=== PATIENT | male | born 1980 | race Caucasian/White ===

== ENCOUNTER 2019-04-20 09:56 | Emergency (ER) | payer OTHER ==
[2019-04-20 10:27] VITALS: RESP 18
--- NOTE | 2019-04-20 10:41 | ED ---
Extremity Problem HPI - General Chief complaint: Extremity Problem,Nontraumatic Stated complaint: lt leg cellulitis Time Seen by Provider: 04/20/19 10:28 Source: patient, RN notes reviewed, old records reviewed Mode of arrival: ambulatory Limitations: no limitations - History of Present Illness Initial comments: Patient is a 38-year-old male presents emergency Department today with complaints of left lower extremity redness and swelling for the past day. Patient reports she's had history of slightly seven lower legs the past. Patient reports he has some Tenderness associated with this. He denies any significant breaks in the skin to cause the onset of a cellulitis. He states he is nondiabetic. Patient reports that he has had no fevers or chills. He states last time he had a set quickly resolved after a week of antibiotics. - Related Data Previous Rx's Medication Instructions Recorded Cephalexin [Keflex] 500 mg PO Q6HR #40 04/20/19 Sulfamethox-Tmp 800-160Mg [Bactrim 1 tab PO Q12HR #40 tab 04/20/19 DS 800-160 mg] Allergies Allergy/AdvReac Type Severity Reaction Status Date / Time Penicillins Allergy Anaphylaxis Verified 04/20/19 10:27 vancomycin Allergy Swelling Verified 04/20/19 10:27 Review of Systems ROS Statement: Those systems with pertinent positive or pertinent negative responses have been documented in the HPI. ROS Other: All systems not noted in ROS Statement are negative. Past Medical History Additional Past Medical History / Comment(s): heart murmur, BLE cellulitis History of Any Multi-Drug Resistant Organisms: None Reported Past Surgical History: Tonsillectomy Additional Past Surgical History / Comment(s): multiple ear surgeries Past Psychological History: No Psychological Hx Reported Smoking Status: Former smoker Past Alcohol Use History: None Reported Past Drug Use History: Marijuana General Exam - General Exam Comments Initial Comments: This is a 38-year-old male. Alert and oriented 3. No distress. Limitations: no limitations General appearance: alert, in no apparent distress Head exam: Present: atraumatic, normocephalic, normal inspection Eye exam: Present: normal appearance, PERRL, EOMI. Absent: scleral icterus, conjunctival injection, periorbital swelling ENT exam: Present: normal exam, mucous membranes moist Neck exam: Present: normal inspection. Absent: tenderness, meningismus, lymphadenopathy Respiratory exam: Present: normal lung sounds bilaterally Cardiovascular Exam: Present: regular rate, normal rhythm, normal heart sounds. Absent: systolic murmur, diastolic murmur, rubs, gallop, clicks GI/Abdominal exam: Present: soft, normal bowel sounds. Absent: distended, tenderness, guarding, rebound, rigid Extremities exam: Present: normal inspection, other (Patient has evidence of er ythema over the lower calf and ankle. Evidence of superficial cellulites. He has swelling noted to the lower leg up to the knee. He does complain of some tach calf tenderness. Dorsalis pedis pulses 2+ bilaterally.) Back exam: Present: normal inspection Neurological exam: Present: alert, oriented X3, CN II-XII intact Course Vital Signs 04/20/19 04/20/19 10:25 12:28 Temperature 98.2 F 98.0 F Pulse Rate 90 78 Respiratory 18 18 Rate Blood Pressure 124/84 142/94 O2 Sat by Pulse 97 98 Oximetry Medical Decision Making - Medical Decision Making This is a 38-year-old male presents emergency department today for evaluation for complaints of left lower external any swelling pain and redness. He reports symptoms for the past few days. Said history of lower extremity cellulitis. At this time Patient has no fever. Discussed concern for possibly blood clot. Ultrasound of the lower external is completed and negative for DVT. Blood work was reviewed and unremarkable. I did tell him that his blood sugar was 188 and that he is on borderline for diabetes. Patient advised to follow-up with PCP. Patient is given a dose Emergency Department. Will Discharge Patient with Bactrim and Tylenol 3 for pain relief. Discussed return parameters and close PCP follow-up. All questions were answered and return parameters were discussed. - Lab Data Result diagrams: 04/20/19 11:00 04/20/19 11:00 Lab Results 04/20/19 04/20/19 04/20/19 Range/Units 11:00 11:00 11:00 WBC 8.3 (3.8-10.6) k/uL RBC 5.32 (4.30-5.90) m/uL Hgb 14.9 (13.0-17.5) gm/dL Hct 45.9 (39.0-53.0) % MCV 86.3 (80.0-100.0) fL MCH 28.0 (25.0-35.0) pg MCHC 32.4 (31.0-37.0) g/dL RDW 13.7 (11.5-15.5) % Plt Count 243 (150-450) k/uL Neutrophils % 68 % Lymphocytes % 22 % Monocytes % 5 % Eosinophils % 3 % Basophils % 0 % Neutrophils # 5.6 (1.3-7.7) k/uL Lymphocytes # 1.8 (1.0-4.8) k/uL Monocytes # 0.5 (0-1.0) k/uL Eosinophils # 0.2 (0-0.7) k/uL Basophils # 0.0 (0-0.2) k/uL Sodium 140 (137-145) mmol/L Potassium 4.1 (3.5-5.1) mmol/L Chloride 104 (98-107) mmol/L Carbon Dioxide 25 (22-30) mmol/L Anion Gap 11 mmol/L BUN 19 (9-20) mg/dL Creatinine 0.70 (0.66-1.25) mg/dL Est GFR (CKD-EPI)AfAm >90 (>60 ml/min/1.73 sqM) Est GFR (CKD-EPI)NonAf >90 (>60 ml/min/1.73 sqM) Glucose 188 H (74-99) mg/dL Plasma Lactic Acid Mur[place]za 1.5 (0.7-2.0) mmol/L Calcium 9.4 (8.4-10.2) mg/dL Total Bilirubin 0.6 (0.2-1.3) mg/dL AST 43 (17-59) U/L ALT 56 (21-72) U/L Alkaline Phosphatase 62 (38-126) U/L Total Protein 7.0 (6.3-8.2) g/dL Albumin 4.2 (3.5-5.0) g/dL - Radiology Data Radiology results: report reviewed US doppler is negative for for DVT. Disposition Clinical Impression: Left leg cellulitis, Hyperglycemia Disposition: HOME SELF-CARE Condition: Good Instructions (If sedation given, give patient instructions): Cellulitis (ED) Additional Instructions: He is advsied of close follow-up with primary care physician. Return to the emergency department if any alarming signs or symptoms occur. The antibiotics as prescribed. If there is any worsening, fever or worsening redness extending up the leg over the next 1-2 days please return for reevaluation. make sure to keep Leg up and elevated. Prescriptions: Sulfamethox-Tmp 800-160Mg [Bactrim DS 800-160 mg] 1 tab PO Q12HR #40 tab Cephalexin [Keflex] 500 mg PO Q6HR #40 Is patient prescribed a controlled substance at d/c from ED?: No Referrals: None,Stated [Primary Care Provider] - 1-2 days Ynes Aguirre MD [REFERRING] - 1-2 days Time of Disposition: 13:05
[2019-04-20 11:20] LABS: Basophils % (A) 0 %; Eosinophils # (A) 0.2 k/uL (0-0.7); Eosinophils % (A) 3 %; HCT 45.9 % (39.0-53.0); HGB 14.9 gm/dL (13.0-17.5); Lymphocytes # (A) 1.8 k/uL (1.0-4.8); Lymphocytes % (A) 22 %; MCHC 32.4 g/dL (31.0-37.0); MCV 86.3 fL (80.0-100.0); Mean Platelet Volume 6.6; Monocytes # (A) 0.5 k/uL (0-1.0); Monocytes % (A) 5 %; Neutrophils # (A) 5.6 k/uL (1.3-7.7); Neutrophils % (A) 68 %; Platelet Count 243 k/uL (150-450); RBC 5.32 m/uL (4.30-5.90); RDW 13.7 % (11.5-15.5); WBC 8.3 k/uL (3.8-10.6)
[2019-04-20 11:27] LABS: ALT 56 U/L (21-72); AST 43 U/L (17-59); African American GFR (CKD) >90 (>60 ml/min/1.73 sqM); Albumin 4.2 g/dL (3.5-5.0); Alkaline Phosphatase 62 U/L (38-126); Anion Gap 11 mmol/L; Blood Urea Nitrogen 19 mg/dL (9-20); Calcium 9.4 mg/dL (8.4-10.2); Carbon Dioxide 25 mmol/L (22-30); Chloride 104 mmol/L (98-107); Glucose 188 mg/dL (74-99); Potassium 4.1 mmol/L (3.5-5.1); Sodium 140 mmol/L (137-145); Total Bilirubin 0.6 mg/dL (0.2-1.3)
[2019-04-20 12:29] VITALS: BP 142/94; PULSE 78; TEMP 98
--- NOTE | 2019-04-20 12:49 | US ---
EXAMINATION TYPE: US venous doppler duplex LE LT DATE OF EXAM: 04/20/2019 10:36 AM COMPARISON: NONE CLINICAL HISTORY: Pain. EC patient with redness/cellulitis to left lower leg; bilateral leg swelling per patient as stated started new job which requires standing all day. SIDE PERFORMED: Left TECHNIQUE: The lower extremity deep venous system is examined utilizing real time linear array sonog adela with graded compression, doppler sonography and color-flow sonography. VESSELS IMAGED: Common Femoral Vein Deep Femoral Vein Greater Saphenous Vein * Femoral Vein Popliteal Vein Small Saphenous Vein * Proximal Calf Veins (* superficial vessels) Left Leg: Negative for DVT Grayscale, color doppler, spectral doppler imaging performed of the deep veins of the left lower extr emity. There is normal flow, compressibility, vascular waveforms. IMPRESSION: No ultrasound evidence for acute DVT in the left lower extremity.
[2019-04-20] MEDS ORDERED: ACET/COD 300 MG/30 MG STARTER PACK 6 TAB BTL PO STA (13:02)
[2019-04-20] MEDS ORDERED: SULFAMETH-TMP DS STARTER PACK 2 TAB BTL PO STA (13:02)
[2019-04-20] MEDS ORDERED: CEPHALEXIN 500MG STARTER PACK 4 CAP BTL PO STA (13:02)
== END 2019-04-20 13:45 | disposition home or self-care (01) ==
LOC: EC 09:56
DX: L03.116 Cellulitis of left lower limb (principal); R73.9 Hyperglycemia, unspecified; Z87.891 Personal history of nicotine dependence; Z88.0 Allergy status to penicillin; Z88.1 Allergy status to other antibiotic agents; Z87.2 Personal history of diseases of the skin and subcutaneous tissue
CPT/HCPCS: 99284; 96365; 36415; 80053; 83605; 85025; 93971; J0690

== ENCOUNTER 2022-06-29 21:02 | Emergency (ER) | payer OTHER ==
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
[2022-06-29 22:31] VITALS: RESP 20
[2022-06-30 08:53] LABS: Amorphous Sediment,Urine Few /hpf; Appearance,Urine Cloudy (Clear); Bilirubin,Urine Negative (Negative); Blood,Urine Negative (Negative); Color,Urine Yellow; Glucose,Urine (UA) Negative (Negative); Ketones,Urine Negative (Negative); Leukocyte Esterase,Urine Negative (Negative); Mucus,Urine Rare /hpf; Nitrite,Urine Negative (Negative); PH, Urine 7.5 (5.0-8.0); Protein,Urine Trace (Negative); Specific Gravity,Urine 1.025 (1.001-1.035); Squamous Epithelial Cell,Urine 1 /hpf (0-4)
[2022-06-30 08:59] LABS: Urn Cannabinoid Scrn Detected (NotDetected)
[2022-06-30 09:00] LABS: Amphetamine Screen,Urine Detected (NotDetected); Barbiturate Screen,Urine Not Detected (NotDetected); Benzodiazepines Screen,Urine Not Detected (NotDetected); Cocaine Screen,Urine Not Detected (NotDetected); Methadone Screen, Urine Not Detected (NotDetected); Opiate Screen,Urine Not Detected (NotDetected); Oxycodone Screen, Urine Not Detected (NotDetected); Phencyclidine Screen,Urine Not Detected (NotDetected); Tricyclic Antidepressant,Urine Not Detected (NotDetected)
[2022-06-30 10:09] LABS: ALT 40 U/L (4-49); AST 27 U/L (17-59); African American GFR (CKD) >90 (>60 ml/min/1.73 sqM); Alkaline Phosphatase 75 U/L (38-126); Anion Gap 8 mmol/L; Blood Urea Nitrogen 15 mg/dL (9-20); Calcium 8.6 mg/dL (8.4-10.2); Carbon Dioxide 30 mmol/L (22-30); Chloride 102 mmol/L (98-107); Glucose 147 mg/dL (74-99); Non-African American GFR(CKD) >90 (>60 ml/min/1.73 sqM); Potassium 4.1 mmol/L (3.5-5.1); Sodium 140 mmol/L (137-145); Total Bilirubin 0.5 mg/dL (0.2-1.3); Total Protein 6.5 g/dL (6.3-8.2)
[2022-06-30 10:50] LABS: Basophils # (A) 0.1 k/uL (0-0.2); Basophils % (A) 1 %; Eosinophils # (A) 0.3 k/uL (0-0.7); Eosinophils % (A) 4 %; HCT 53.8 % (39.0-53.0); HGB 17.4 gm/dL (13.0-17.5); Lymphocytes # (A) 2.2 k/uL (1.0-4.8); Lymphocytes % (A) 30 %; MCH 28.3 pg (25.0-35.0); MCHC 32.3 g/dL (31.0-37.0); MCV 87.6 fL (80.0-100.0); Mean Platelet Volume 7.1; Monocytes # (A) 0.4 k/uL (0-1.0); Monocytes % (A) 6 %; Neutrophils # (A) 4.2 k/uL (1.3-7.7); Neutrophils % (A) 57 %; Platelet Count 232 k/uL (150-450); RBC 6.14 m/uL (4.30-5.90); RDW 13.1 % (11.5-15.5); WBC 7.3 k/uL (3.8-10.6)
[2022-07-01 09:22] VITALS: BP 137/81; PULSE 81; TEMP 97.7
== END 2022-07-01 10:08 ==
LOC: EC 21:02
DX: R45.851 Suicidal ideations (principal); F32.A Depression, unspecified; F12.90 Cannabis use, unspecified, uncomplicated; Z88.0 Allergy status to penicillin; Z88.1 Allergy status to other antibiotic agents; Z79.899 Other long term (current) drug therapy; Z20.822 Contact with and (suspected) exposure to COVID-19
CPT/HCPCS: 36415; 80053; 80306; 81001; 82075; 85025; 87635; 99285

== ENCOUNTER 2022-08-17 13:35 | Emergency (ER) | payer OTHER ==
[2022-08-17 13:40] VITALS: BP 146/85; PULSE 98; RESP 16; TEMP 98.7
--- NOTE | 2022-08-17 13:55 | ED ---
URI HPI - General Chief Complaint: Upper Respiratory Infection Stated Complaint: chest cold Time Seen by Provider: 08/17/22 13:42 Source: patient, RN notes reviewed Mode of arrival: ambulatory Limitations: no limitations - History of Present Illness Initial Comments: Patient is a 41 year old male presenting to the ER with a chief complaint of chest cold. Patient states this has been occurring for about 2 weeks. He has coughed up dark green phlegm and mild shortness of breath. Denies congestion, rhinorrhea, ear pain, or sore throat. Patient denies any home medication use for symptoms. Patient reports occasional fevers but have subsided. He denies chills or nightsweats. - Related Data Home Medications Medication Instructions Recorded Confirmed Sildenafil Citrate [Sildenafil] 80 mg PO Q48H PRN 06/30/22 06/30/22 Previous Rx's Medication Instructions Recorded Azithromycin [Zithromax Z Pack] 0 tab PO DIRECTED #6 tab 08/17/22 predniSONE 50 mg PO DAILY #5 tab 08/17/22 Allergies Allergy/AdvReac Type Severity Reaction Status Date / Time Penicillins Allergy Anaphylaxis Verified 08/17/22 13:40 vancomycin Allergy Swelling Verified 08/17/22 13:40 Review of Systems ROS Statement: Those systems with pertinent positive or pertinent negative responses have been documented in the HPI. ROS Other: All systems not noted in ROS Statement are negative. Past Medical History Additional Past Medical History / Comment(s): heart murmur, BLE cellulitis History of Any Multi-Drug Resistant Organisms: None Reported Past Surgical History: Tonsillectomy Additional Past Surgical History / Comment(s): multiple ear surgeries Past Psychological History: No Psychological Hx Reported Past Alcohol Use History: None Reported Past Drug Use History: Marijuana General Exam Limitations: no limitations General appearance: alert, in no apparent distress Head exam: Present: atraumatic, normocephalic, normal inspection Eye exam: Present: normal appearance, PERRL, EOMI. Absent: scleral icterus, conjunctival injection, periorbital swelling ENT exam: Present: normal exam, mucous membranes moist Neck exam: Present: normal inspection. Absent: tenderness, meningismus, lymphadenopathy Respiratory exam: Present: rales (bilateral bases) Cardiovascular Exam: Present: regular rate, normal rhythm, normal heart sounds. Absent: systolic murmur, diastolic murmur, rubs, gallop, clicks GI/Abdominal exam: Present: soft, normal bowel sounds. Absent: distended, tenderness, guarding, rebound, rigid Neurological exam: Present: alert, oriented X3, CN II-XII intact Psychiatric exam: Present: normal affect, normal mood Course Vital Signs 08/17/22 13:36 Temperature 98.7 F Pulse Rate 98 Respiratory 16 Rate Blood Pressure 146/85 O2 Sat by Pulse 96 Oximetry Medical Decision Making - Medical Decision Making Chest x-ray does not show definite pneumonia, patient is has tracheobronchitis. Patient advised to stop smoking. I counseled the patient for smoking cessation for greater than 3 minutes. Patient we treated with oral antibiotics return parameters were discussed. Disposition Clinical Impression: Tracheobronchitis Disposition: HOME SELF-CARE Condition: Stable Instructions (If sedation given, give patient instructions): Upper Respiratory Infection (ED) Additional Instructions: Please return to the Emergency Department if symptoms worsen or any other concerns. Prescriptions: predniSONE 50 mg PO DAILY #5 tab Azithromycin [Zithromax Z Pack] 0 tab PO DIRECTED #6 tab Is patient prescribed a controlled substance at d/c from ED?: No Referrals: Eyad Gallegos MD [Primary Care Provider] - 1-2 days Time of Disposition: 14:19
--- NOTE | 2022-08-17 14:06 | XR ---
EXAMINATION TYPE: XR chest 2V DATE OF EXAM: 08/17/2022 COMPARISON: NONE HISTORY: Cough. TECHNIQUE: Frontal and lateral views of the chest are obtained. FINDINGS: There is no focal air space opacity, pleural effusion, or pneumothorax seen. The cardiac silhouette size is within normal limits. Some multilevel spurring in the thoracic spine is redemonstr ated. IMPRESSION: No suspicious acute pulmonary process.
== END 2022-08-17 14:27 | disposition home or self-care (01) ==
LOC: EC 13:35
DX: J40 Bronchitis, not specified as acute or chronic (principal); F12.90 Cannabis use, unspecified, uncomplicated; Z88.0 Allergy status to penicillin; Z88.1 Allergy status to other antibiotic agents
CPT/HCPCS: 71046; 99284

== ENCOUNTER 2022-10-02 15:10 | Inpatient (IN) | payer OTHER ==
[2022-10-02 15:56] LABS: Basophils # (A) 0.1 k/uL (0-0.2); Basophils % (A) 1 %; Eosinophils # (A) 0.2 k/uL (0-0.7); Eosinophils % (A) 2 %; HGB 17.4 gm/dL (13.0-17.5); Lymphocytes # (A) 2.9 k/uL (1.0-4.8); Lymphocytes % (A) 29 %; MCHC 33.5 g/dL (31.0-37.0); MCV 86.5 fL (80.0-100.0); Mean Platelet Volume 7.8; Monocytes # (A) 0.5 k/uL (0-1.0); Monocytes % (A) 5 %; Neutrophils # (A) 5.9 k/uL (1.3-7.7); Neutrophils % (A) 60 %; Platelet Count 220 k/uL (150-450); RBC 6.01 m/uL (4.30-5.90); RDW 13.4 % (11.5-15.5); WBC 9.7 k/uL (3.8-10.6)
[2022-10-02 15:58] LABS: ALT 42 U/L (4-49); AST 31 U/L (17-59); African American GFR (CKD) >90 (>60 ml/min/1.73 sqM); Albumin 4.3 g/dL (3.5-5.0); Alkaline Phosphatase 78 U/L (38-126); Anion Gap 8 mmol/L; Blood Urea Nitrogen 19 mg/dL (9-20); Calcium 9.2 mg/dL (8.4-10.2); Carbon Dioxide 29 mmol/L (22-30); Chloride 105 mmol/L (98-107); Glucose 140 mg/dL (74-99); Magnesium 2.1 mg/dL (1.6-2.3); Non-African American GFR(CKD) >90 (>60 ml/min/1.73 sqM); Potassium 4.3 mmol/L (3.5-5.1); Sodium 142 mmol/L (137-145); Total Bilirubin 0.6 mg/dL (0.2-1.3); Total Protein 7.1 g/dL (6.3-8.2)
[2022-10-02 16:20] LABS: Partial Thromboplastin Time 24.9 sec (22.0-30.0); Prothrombin Time 10.4 sec (9.0-12.0)
--- NOTE | 2022-10-02 16:29 | XR ---
EXAMINATION TYPE: XR chest 2V DATE OF EXAM: 10/02/2022 COMPARISON: 08/17/2022 HISTORY: Difficulty breathing x2 weeks TECHNIQUE: Frontal and lateral views of the chest are obtained. FINDINGS: Cardiomediastinal silhouette and pulmonary vasculature are normal. The lungs are clear. St able multilevel degenerative changes of the thoracic spine mostly evidenced by anterior spurring, but no acute osseous abnormality. IMPRESSION: No acute cardiopulmonary process.
--- NOTE | 2022-10-02 18:36 | CT ---
EXAMINATION TYPE: CT angio chest CT DLP: 1020.3 mGycm, Automated exposure control for dose reduction was used. DATE OF EXAM: 10/02/2022 5:37 PM COMPARISON: Chest radiograph same day. CLINICAL INDICATION:Male, 41 years old with history of PE suspected; SOB, heart palpitations, had Cov id 2 weeks ago, not able to establish normal breathing. TECHNIQUE/CONTRAST: CTA scan of the thorax is performed with IV Contrast, patient injected with 100 mL of Isovue 370, pul monary embolism protocol. MIP images are created and reviewed. FINDINGS: Pulmonary Artery: Filling defects are seen within the right and left pulmonary arteries extending to the segmental and subsegmental branches. There is evidence of right heart strain with flattening of t he interventricular septum. RV/LV: 1.3 Lungs/Pleura: No evidence of focal consolidation, pleural effusion or pneumothorax. Right and left pu lmonary arteries Airway: Large airways are patent. Heart: Heart is within normal limits for size. Vasculature: No evidence of aortic aneurysm. Mediastinum: No gross evidence of adenopathy. Musculoskeletal: No acute osseous abnormalities Soft Tissues: Unremarkable. Lower neck: No significant findings. Upper Abdomen: Diffuse low-attenuation to the liver parenchyma consistent with hepatic steatosis. Findings communicated to Dr. Roger Martinez MD on 10/02/2022 6:[address] Roger Chun. IMPRESSION: Bilateral pulmonary emboli within the right and left pulmonary arteries extending to the lobar, segme ntal and subsegmental branches. There is evidence of right heart strain. RV/LV: 1.3
[2022-10-02] MEDS ORDERED: HEPARIN SODIUM 1,000 UN/ML (10ML VL) IV ONE (19:28)
[2022-10-02] MEDS ORDERED: HEPARIN SODIUM 1,000 UN/ML (10ML VL) IV PRN (19:28)
--- NOTE | 2022-10-02 19:28 | ED ---
SOB HPI - General Chief Complaint: Shortness of Breath Stated Complaint: sob/heart palp Time Seen by Provider: 10/02/22 18:28 Source: patient, RN notes reviewed Mode of arrival: ambulatory Limitations: no limitations - History of Present Illness Initial Comments: 41-year-old male with diagnosed 2 weeks ago with Covid 19. Patient does admit to be a smoker. Who complains of exertional dyspnea over last week plus he did test negative with a home test after the initial +1. He denies any fevers chills sweats possibly some chest discomfort no cough or phlegm production at this time no fevers chills or sweats. MD Complaint: shortness of breath - Related Data Home Medications Medication Instructions Recorded Confirmed Sildenafil Citrate [Sildenafil] 80 mg PO Q48H PRN 06/30/22 06/30/22 Previous Rx's Medication Instructions Recorded Azithromycin [Zithromax Z Pack] 0 tab PO DIRECTED #6 tab 08/17/22 Benzonatate [Tessalon Perle] 200 mg PO TID #20 capsule 08/17/22 predniSONE 50 mg PO DAILY #5 tab 08/17/22 Allergies Allergy/AdvReac Type Severity Reaction Status Date / Time Penicillins Allergy Anaphylaxis Verified 08/17/22 13:40 vancomycin Allergy Swelling Verified 08/17/22 13:40 Review of Systems ROS Statement: Those systems with pertinent positive or pertinent negative responses have been documented in the HPI. ROS Other: All systems not noted in ROS Statement are negative. Past Medical History Additional Past Medical History / Comment(s): heart murmur, BLE cellulitis History of Any Multi-Drug Resistant Organisms: None Reported Past Surgical History: Adenoidectomy, Tonsillectomy Additional Past Surgical History / Comment(s): multiple ear surgeries Past Psychological History: No Psychological Hx Reported Smoking Status: Current every day smoker Past Alcohol Use History: None Reported Past Drug Use History: Marijuana General Exam - General Exam Comments Initial Comments: This is a well-developed well-nourished awake alert oriented 3 male Limitations: no limitations General appearance: alert, in no apparent distress Head exam: Present: atraumatic, normocephalic, normal inspection Eye exam: Present: normal appearance, PERRL, EOMI. Absent: scleral icterus, conjunctival injection, periorbital swelling ENT exam: Present: normal exam, mucous membranes moist Neck exam: Present: normal inspection, full ROM, other (No stridor JVD or bruits). Absent: tenderness, meningismus, lymphadenopathy Respiratory exam: Present: decreased breath sounds. Absent: respiratory distress, wheezes, rales, rhonchi, stridor Cardiovascular Exam: Present: regular rate, normal rhythm, normal heart sounds. Absent: systolic murmur, diastolic murmur, rubs, gallop, clicks GI/Abdominal exam: Present: soft, normal bowel sounds. Absent: distended, tenderness, guarding, rebound, rigid Extremities exam: Present: normal inspection, full ROM, normal capillary refill. Absent: tenderness, pedal edema, joint swelling, calf tenderness Back exam: Present: normal inspection Neurological exam: Present: alert, oriented X3, CN II-XII intact Psychiatric exam: Present: normal affect, normal mood Skin exam: Present: warm, dry, intact, normal color. Absent: rash Course Vital Signs 10/02/22 10/02/22 15:25 18:36 Temperature 98 F Pulse Rate 97 Respiratory 20 18 Rate Blood Pressure 107/66 O2 Sat by Pulse 96 Oximetry - Reevaluation(s) Reevaluation #1: 10/02/22 19:22 Patient did have an elevated d-dimer a CT angios was done. It was interpreted by me also I did discuss case with Dr. Chun from radiology he does have evidence of bilateral pulmonary emboli with some evidence of right heart strain. Medical Decision Making - Medical Decision Making I did discuss findings the patient and family were present also with Dr. Tapia and Dr. Devlin. Patient will be placed on high-dose heparin with echocardiogram in the a.m. Was pt. sent in by a medical professional or institution? @ No-[by , PA, AUXILIARY EQUIPMENT TENDER, urgent care, hospital, or fpc] Did you speak to anyone other than the patient for history? @ No-[EMS, parent, family, police, friend?] Did you review nursing and triage notes? @ Yes and agree-[agree or disagree, why?] Were old charts reviewed? @ Go-[outside hosp., previous admissions, EMS record, old EKG, old radiological studies, urgent care reports/EKGs, fpc records?] Differential Diagnosis? @ Pulmonary embolism, pneumonia, bronchospastic disease-[chest pain, altered mental status abdominal pain women, abdominal pain men, vaginal bleeding, weakness, fever, dyspnea, syncope, headache, dizziness, GI bleed, back pain, seizure] EKG interpreted by me (3pts min.)? @ Yes [none] X-rays interpreted by me (1pt min.)? @ Yes negative-[none] CT interpreted by me (1pt min.)? @ He has positive for bilateral PE with right heart strain-[none] U/S interpreted by me (1pt. min.)? @ -[none] What testing was considered but not performed? (CT, X-rays, U/S, labs)? Why? @ [CT, X-rays, U/S, labs? Why?] What meds were considered but not given? Why? @ -[none] Did you discuss the management of the patient with other professionals? @ Dr. Devlin and Dr. Tapia-[professionals i.e. Dr, PA, AUXILIARY EQUIPMENT TENDER, Lab, RT, Psych Nurse, Lubricating Machine Tender, Track Walker, Teacher, Ed Physicians, vocational case manager? Give summary] Did you reconcile home meds? @ -[none] Was smoking cessation discussed for >3mins.? @ Yes-[none] Was critical care preformed (if so, how long)? @ Yes 31 minutes-[none] Were there social determinants of health that impacted care today? How? (Homelessness, low income, unemployed, alcoholism, drug addiction, transportation, low edu. Level, literacy, decrease access to med. care, alf, rehab)? @ -[Homelessness, low income, unemployed, alcoholism, drug addiction, transportation, low edu. Level, literacy, decrease access to med. care, alf, rehab?] Was there de-escalation of care discussed even if they declined? (Discuss DNR or withdrawal of care, Hospice)? @ -[Discuss DNR or withdrawal of care, Hospice?] What co-morbidities impacted this encounter? (DM, HTN, Smoking, COPD, CAD, Cancer, CVA, Hep., AIDS, mental health diagnosis, sleep apnea, morbid obesity)? @ -[DM, HTN, Smoking, COPD, CAD, Cancer, CVA, Hep., AIDS, mental health diagnosis, sleep apnea, morbid obesity?] Was patient admitted / discharged? @ Patient was admitted for inpatient treatment of bilateral pulmonary emboli- [hospital course] Undiagnosed new problem with uncertain prognosis? @ -[none] Drug Therapy requiring intensive monitoring for toxicity (Heparin, Nitro, Insulin, Cardizem)? @ Heparin high-dose-[none] Were any procedures done? @ -[none] Diagnosis/symptom? @ Bilateral pulmonary embolus, Covid 19, dyspnea-[default] Acute, or Chronic, or Acute on Chronic? @ Acute-[default] Uncomplicated (without systemic symptoms) or Complicated (systemic symptoms)? @ -[default] Side effects of treatment? @ Potential bleeding-[none] Exacerbation, Progression, or Severe Exacerbation] @ -[no] Poses a threat to life or bodily function? @ Potentially-[no] - Lab Data Result diagrams: 10/02/22 15:40 10/02/22 15:40 Lab Results 10/02/22 10/02/22 10/02/22 Range/Units 15:40 15:40 15:40 WBC 9.7 (3.8-10.6) k/uL RBC 6.01 H (4.30-5.90) m/uL Hgb 17.4 (13.0-17.5) gm/dL Hct 52.0 (39.0-53.0) % MCV 86.5 (80.0-100.0) fL MCH 29.0 (25.0-35.0) pg MCHC 33.5 (31.0-37.0) g/dL RDW 13.4 (11.5-15.5) % Plt Count 220 (150-450) k/uL MPV 7.8 Neutrophils % 60 % Lymphocytes % 29 % Monocytes % 5 % Eosinophils % 2 % Basophils % 1 % Neutrophils # 5.9 (1.3-7.7) k/uL Lymphocytes # 2.9 (1.0-4.8) k/uL Monocytes # 0.5 (0-1.0) k/uL Eosinophils # 0.2 (0-0.7) k/uL Basophils # 0.1 (0-0.2) k/uL PT 10.4 (9.0-12.0) sec INR 1.0 (<1.2) APTT 24.9 (22.0-30.0) sec D-Dimer 5.44 H (<0.60) mg/L FEU Sodium 142 (137-145) mmol/L Potassium 4.3 (3.5-5.1) mmol/L Chloride 105 (98-107) mmol/L Carbon Dioxide 29 (22-30) mmol/L Anion Gap 8 mmol/L BUN 19 (9-20) mg/dL Creatinine 0.88 (0.66-1.25) mg/dL Est GFR (CKD-EPI)AfAm >90 (>60 ml/min/1.73 sqM) Est GFR (CKD-EPI)NonAf >90 (>60 ml/min/1.73 sqM) Glucose 140 H (74-99) mg/dL Calcium 9.2 (8.4-10.2) mg/dL Magnesium 2.1 (1.6-2.3) mg/dL Total Bilirubin 0.6 (0.2-1.3) mg/dL AST 31 (17-59) U/L ALT 42 (4-49) U/L Alkaline Phosphatase 78 (38-126) U/L Troponin I (0.000-0.034) ng/mL Total Protein 7.1 (6.3-8.2) g/dL Albumin 4.3 (3.5-5.0) g/dL Coronavirus (PCR) (Not Detectd) Influenza Type A RNA (Not Detectd) Influenza Type B (PCR) (Not Detectd) 10/02/22 10/02/22 10/02/22 Range/Units 15:40 15:40 15:40 WBC (3.8-10.6) k/uL RBC (4.30-5.90) m/uL Hgb (13.0-17.5) gm/dL Hct (39.0-53.0) % MCV (80.0-100.0) fL MCH (25.0-35.0) pg MCHC (31.0-37.0) g/dL RDW (11.5-15.5) % Plt Count (150-450) k/uL MPV Neutrophils % % Lymphocytes % % Monocytes % % Eosinophils % % Basophils % % Neutrophils # (1.3-7.7) k/uL Lymphocytes # (1.0-4.8) k/uL Monocytes # (0-1.0) k/uL Eosinophils # (0-0.7) k/uL Basophils # (0-0.2) k/uL PT (9.0-12.0) sec INR (<1.2) APTT (22.0-30.0) sec D-Dimer (<0.60) mg/L FEU Sodium (137-145) mmol/L Potassium (3.5-5.1) mmol/L Chloride (98-107) mmol/L Carbon Dioxide (22-30) mmol/L Anion Gap mmol/L BUN (9-20) mg/dL Creatinine (0.66-1.25) mg/dL Est GFR (CKD-EPI)AfAm (>60 ml/min/1.73 sqM) Est GFR (CKD-EPI)NonAf (>60 ml/min/1.73 sqM) Glucose (74-99) mg/dL Calcium (8.4-10.2) mg/dL Magnesium (1.6-2.3) mg/dL Total Bilirubin (0.2-1.3) mg/dL AST (17-59) U/L ALT (4-49) U/L Alkaline Phosphatase (38-126) U/L Troponin I 0.022 (0.000-0.034) ng/mL Total Protein (6.3-8.2) g/dL Albumin (3.5-5.0) g/dL Coronavirus (PCR) Detected A (Not Detectd) Influenza Type A RNA Not Detected (Not Detectd) Influenza Type B (PCR) Not Detected (Not Detectd) - Radiology Data Interpreted by me: I did interpret the imaging chest x-ray negative for acute process CAT scan did show evidence of bilateral PEs with some evidence of heart strain. Critical Care Time Critical Care Time: Yes Total Critical Care Time: 31 Critical Care Time: Critical care time includes initial presentation with history physical labs x- rays also CAT scan several reevaluation the patient discussion with the patient and family as well as with the admitting service and cardiology. Admission orders documentation the above Disposition Clinical Impression: Pulmonary embolism, Exertional dyspnea, COVID-19 Disposition: ADMITTED IP TO THIS HOSP Condition: Fair Referrals: None,Stated [Primary Care Provider] - 1-2 days Decision Date: 10/02/22 Decision Time: 19:00
[2022-10-02] MEDS ORDERED: NALOXONE 0.4 MG/ML 1 ML VIAL IV PRN (19:35)
[2022-10-02] MEDS ORDERED: ACETAMINOPHEN TAB 325 MG TAB PO PRN (19:35)
[2022-10-02] MEDS: SODIUM CHLORIDE 0.9% 1,000 ML IV SCH (20:26)
[2022-10-02] MEDS: HEPARIN SOD,PORK IN 0.45% NACL 25,000 UNIT in 0.45% NACL 1 250ML.BAG IV SCH (20:27)
[2022-10-02 21:11] LABS: Partial Thromboplastin Time 23.4 sec (22.0-30.0); Prothrombin Time 10.7 sec (9.0-12.0)
[2022-10-02 21:17] LABS: Basophils # (A) 0.1 k/uL (0-0.2); Basophils % (A) 1 %; Eosinophils # (A) 0.2 k/uL (0-0.7); Eosinophils % (A) 2 %; HCT 52.8 % (39.0-53.0); HGB 17.1 gm/dL (13.0-17.5); Lymphocytes # (A) 2.4 k/uL (1.0-4.8); Lymphocytes % (A) 29 %; MCH 28.1 pg (25.0-35.0); MCHC 32.4 g/dL (31.0-37.0); MCV 86.8 fL (80.0-100.0); Mean Platelet Volume 7.6; Monocytes # (A) 0.6 k/uL (0-1.0); Monocytes % (A) 7 %; Neutrophils % (A) 59 %; Platelet Count 203 k/uL (150-450); RBC 6.09 m/uL (4.30-5.90); RDW 13.5 % (11.5-15.5); WBC 8.4 k/uL (3.8-10.6)
[2022-10-02] MEDS: BENZONATATE 100 MG CAP PO SCH ×2 (22:04→22:06)
--- NOTE | 2022-10-03 00:29 | P.HPIM ---
History of Present Illness H&P Date: 10/02/22 The patient is a 41-year-old male with no known PMH who presents to the emergency room with complaints of shortness of breath. The patient reports he was diagnosed with Covid-19 1 month ago, and although his initial Covid symptoms improved after 2 weeks, his shortness of breath has persisted. He reports that over the past 2 weeks he has had significantly decreased exercise tolerance with exertional substernal chest discomfort, palpitations, and shortness of breath. He denied any such symptoms in the past. He smokes one pack of cigarettes daily. Denied experiencing cough, fever, lower extremity swelling, or lower extremity pain. Upon presentation to the emergency room, the patient's BP was 107/66, SpO2 96% on room air, pulse 97, respiratory rate 20, and temp 98F. Chest CT in the [facility] room revealed bilateral pulmonary emboli within the right and left pulmonary arteries extending to the lobar, segmental, and subsegmental branches with evidence of right heart strain. D-dimer in the emergency room was elevated at 5.44 with troponin 0.022. EKG revealed sinus rhythm with left axis deviation at 96 bpm as reviewed by me. The case was discussed in extensive detail with the ED physician. He reported discussing the case with cardiology rn long term care who recommended to initiating the patient on heparin infusion with echocardiogram in a.m. No urgent intervention was recommended as the patient was hemodynamically stable. Review of systems: Pertinent positives and negatives as discussed in HPI, a complete review of systems was performed and all other systems are negative. Physical examination: General: non toxic, no distress, appears at stated age, morbidly obese Derm: no unusual rashes/lesions, warm Head: atraumatic, normocephalic, symmetric Eyes: EOMI, no lid lag, anicteric sclera, pupils equal round reactive to light ENT: Nose and ears atraumatic Neck: No cervical lymphadenopathy, trachea midline, supple Mouth: no lip lesion, mucus membranes moist Cardiovascular: S1S2 reg, no murmur, positive dorsalis pedis pulse bilateral, no edema Lungs: CTA bilateral, no rhonchi, no rales, no accessory muscle use Abdominal: soft, nontender to palpation, no guarding Ext: muscle strength 5 out of 5 in all 4 extremities grossly, no gross muscle atrophy, no contractures, Neuro: CN II-XI grossly intact, no gross focal neuro deficits Psych: Alert, oriented, appropriate affect Assessment/plan Acute bilateral PE with right heart strain -Suspect likely secondary to recent COVID-19 infection -Continue with heparin infusion -Patient currently hemodynamically stable -Echocardiogram ordered -Cardiology consulted -Trend troponin DVT prophylaxis -Heparin infusion The patient is admitted with an anticipated greater than 2 midnight stay for evaluation of acute PE. CODE STATUS: Full Code Discussed with: Patient Anticipated discharge date: 10/04/[address]: Home Past Medical History Additional Past Medical History / Comment(s): heart murmur, BLE cellulitis History of Any Multi-Drug Resistant Organisms: None Reported Past Surgical History: Adenoidectomy, Tonsillectomy Additional Past Surgical History / Comment(s): multiple ear surgeries Past Psychological History: No Psychological Hx Reported Smoking Status: Current every day smoker Past Alcohol Use History: None Reported Past Drug Use History: Marijuana - Past Family History Father Family Medical History: COPD Medications and Allergies Home Medications Medication Instructions Recorded Confirmed Type Sildenafil Citrate [Sildenafil] 20 mg PO DAILY PRN 06/30/22 10/02/22 History buPROPion XL [Wellbutrin XL] 300 mg PO DAILY 10/02/22 10/02/22 History traZODone HCL [Desyrel] 50 - 100 mg PO HS PRN 10/02/22 10/02/22 History Allergies Allergy/AdvReac Type Severity Reaction Status Date / Time Penicillins Allergy Anaphylaxis Verified 10/02/22 19:41 vancomycin Allergy Swelling Verified 10/02/22 19:41 Physical Exam Vitals: Vital Signs Temp Pulse Resp BP Pulse Ox 10/02/22 20:18 98.6 F 97 20 137/88 94 L 10/02/22 18:36 18 10/02/22 15:25 98 F 97 20 107/66 96 Intake and Output 10/02/22 10/02/22 10/02/22 06:59 14:59 22:59 Other: Weight 171.912 kg Results CBC & Chem 7: 10/02/22 20:07 10/02/22 15:40 Labs: Abnormal Lab Results - Last 24 Hours (Table) 10/02/22 10/02/22 10/02/22 Range/Units 15:40 15:40 15:40 RBC 6.01 H (4.30-5.90) m/uL D-Dimer 5.44 H (<0.60) mg/L FEU Glucose 140 H (74-99) mg/dL Coronavirus (PCR) (Not Detectd) 10/02/22 10/02/22 Range/Units 15:40 20:07 RBC 6.09 H (4.30-5.90) m/uL D-Dimer (<0.60) mg/L FEU Glucose (74-99) mg/dL Coronavirus (PCR) Detected A (Not Detectd)
[2022-10-03] MEDS: HEPARIN SOD,PORK IN 0.45% NACL 25,000 UNIT in 0.45% NACL 1 250ML.BAG IV SCH ×3 (07:30→17:58)
--- NOTE | 2022-10-03 08:06 | P.CRDCN ---
History of Present Illness Consult date: 10/03/22 Chief complaint: Shortness of breath History of present illness: The patient is a pleasant 41-year-old -[place] gentleman with a past med ical history significant for obesity and smoking who presented to the hospital complaining of shortness of breath. He was diagnosed was COVID-19 infection about a month ago. For the last few days he has been experiencing increasing shortness of breath lately associated with chest discomfort. For that reason emergency department. He underwent sedation including cardiac enzymes came in to be unremarkable and EKG showed sinus tachycardia with evidence of ST changes appeared to be nonspecific and diffuse. Also he underwent a computed tomography scan of the chest and that showed bilateral pulmonary embolism with evidence of right ventricular strain. Currently the patient is hemodynamically stable currently is on heparin IV. No history of PE or DVT in the past. He is in process of having an echocardiogram. He was tested again for COVID-19 Past Medical History Additional Past Medical History / Comment(s): heart murmur, BLE cellulitis History of Any Multi-Drug Resistant Organisms: None Reported Past Surgical History: Adenoidectomy, Tonsillectomy Additional Past Surgical History / Comment(s): multiple ear surgeries Past Psychological History: No Psychological Hx Reported Smoking Status: Current every day smoker Past Alcohol Use History: None Reported Past Drug Use History: Marijuana - Past Family History Father Family Medical History: COPD Medications and Allergies Home Medications Medication Instructions Recorded Confirmed Type Sildenafil Citrate [Sildenafil] 20 mg PO DAILY PRN 06/30/22 10/02/22 History buPROPion XL [Wellbutrin XL] 300 mg PO DAILY 10/02/22 10/02/22 History traZODone HCL [Desyrel] 50 - 100 mg PO HS PRN 10/02/22 10/02/22 History Allergies Allergy/AdvReac Type Severity Reaction Status Date / Time Penicillins Allergy Anaphylaxis Verified 10/02/22 19:41 vancomycin Allergy Swelling Verified 10/02/22 19:41 Physical Exam Vitals: Vital Signs Temp Pulse Resp BP Pulse Ox 10/03/22 06:00 78 18 10/03/22 02:42 83 18 10/02/22 22:03 100 18 130/87 96 10/02/22 20:18 98.6 F 97 20 137/88 94 L 10/02/22 18:36 18 10/02/22 15:25 98 F 97 20 107/66 96 Intake and Output 10/02/22 10/03/22 10/03/22 22:59 06:59 14:59 Intake Total 250 Balance 250 Intake: Intake, IV Titration 250 Amount Heparin Sod,Pork in 0.45% 250 NaCl 25,000 unit In 0.45 % NaCl 1 250ml.bag @ 13. 379 UNITS/KG/HR 23 mls/hr IV .[id number] [facility] Rx#: [id number] Other: Weight 171.912 kg - Constitutional General appearance: no acute distress - Respiratory Respiratory: bilateral: CTA - Cardiovascular Rhythm: regular Results 10/02/22 20:07 10/02/22 15:40 Cardiac Enzymes 10/02/22 10/02/22 10/03/22 Range/Units 15:40 15:40 02:08 AST 31 (17-59) U/L Troponin I 0.022 0.015 (0.000-0.034) ng/mL Coagulation 10/02/22 10/02/22 10/03/22 Range/Units 15:40 20:07 02:08 PT 10.4 10.7 (9.0-12.0) sec APTT 24.9 23.4 55.9 H (22.0-30.0) sec CBC 10/02/22 10/02/22 Range/Units 15:40 20:07 WBC 9.7 8.4 (3.8-10.6) k/uL RBC 6.01 H 6.09 H (4.30-5.90) m/uL Hgb 17.4 17.1 (13.0-17.5) gm/dL Hct 52.0 52.8 (39.0-53.0) % Plt Count 220 203 (150-450) k/uL Comprehensive Metabolic Panel 10/02/22 Range/Units 15:40 Sodium 142 (137-145) mmol/L Potassium 4.3 (3.5-5.1) mmol/L Chloride 105 (98-107) mmol/L Carbon Dioxide 29 (22-30) mmol/L BUN 19 (9-20) mg/dL Creatinine 0.88 (0.66-1.25) mg/dL Glucose 140 H (74-99) mg/dL Calcium 9.2 (8.4-10.2) mg/dL AST 31 (17-59) U/L ALT 42 (4-49) U/L Alkaline Phosphatase 78 (38-126) U/L Total Protein 7.1 (6.3-8.2) g/dL Albumin 4.3 (3.5-5.0) g/dL Current Medications Generic Name Dose Route Start Last Admin Trade Name Freq PRN Reason Stop Dose Admin Acetaminophen 650 mg 10/02/22 19:35 Acetaminophen Tab 325 Mg Tab PO Q6HR PRN Mild Pain or Fever > 100.5 Benzonatate 200 mg 10/02/22 22:00 10/02/22 22:06 Benzonatate 100 Mg Cap PO Not Given TID TAZ Heparin Sodium (Porcine) 0 unit 10/02/22 19:28 Heparin Sodium 1,000 Un/Ml (10ml Vl) IV PER PROTOCOL PRN Low PTT Protocol Heparin Sodium/Sodium Chloride 250 mls @ 23 mls/hr 10/02/22 19:30 10/03/22 07:30 25,000 unit/ Sodium Chloride IV 13.379 units/kg/hr .[id number] TAZ 23 mls/hr Administration Protocol 13.379 UNITS/KG/HR Sodium Chloride 1,000 mls @ 75 mls/hr 10/02/22 19:45 10/02/22 20:26 Saline 0.9% IV 75 mls/hr .[id number] TAZ Administration Naloxone HCl 0.2 mg 10/02/22 19:35 Naloxone 0.4 Mg/Ml 1 Ml Vial IV Q2M PRN Opioid Reversal Pantoprazole Sodium 40 mg 10/03/22 09:00 Pantoprazole 40 Mg/10 Ml Vial IV DAILY TAZ Prednisone 50 mg 10/03/22 09:00 Prednisone 50 Mg Tab PO DAILY TAZ Intake and Output 10/02/22 10/03/22 10/03/22 22:59 06:59 14:59 Intake Total 250 Balance 250 Intake: Intake, IV Titration 250 Amount Heparin Sod,Pork in 0.45% 250 NaCl 25,000 unit In 0.45 % NaCl 1 250ml.bag @ 13. 379 UNITS/KG/HR 23 mls/hr IV .[id number] TAZ Rx#: [id number] Other: Weight 171.912 kg 10/02/22 20:07 10/02/22 15:40 Assessment and Plan Assessment: Assessment Recent diagnosis of COVID-19 infection Submassive pulmonary embolism Obesity History of smoking Plan Continue IV heparin Consider the ultrasonic catheter placement Follow-up with the patient
[2022-10-03 08:08] LABS: Basophils # (A) 0.1 k/uL (0-0.2); Basophils % (A) 1 %; Eosinophils # (A) 0.2 k/uL (0-0.7); Eosinophils % (A) 3 %; HCT 52.7 % (39.0-53.0); Lymphocytes # (A) 2.3 k/uL (1.0-4.8); Lymphocytes % (A) 28 %; MCH 28.5 pg (25.0-35.0); MCHC 32.2 g/dL (31.0-37.0); MCV 88.3 fL (80.0-100.0); Mean Platelet Volume 7.9; Monocytes # (A) 0.6 k/uL (0-1.0); Monocytes % (A) 8 %; Neutrophils # (A) 4.9 k/uL (1.3-7.7); Neutrophils % (A) 59 %; Platelet Count 185 k/uL (150-450); RBC 5.96 m/uL (4.30-5.90); RDW 13.4 % (11.5-15.5); WBC 8.4 k/uL (3.8-10.6)
[2022-10-03] MEDS: PANTOPRAZOLE 40 MG/10 ML VIAL IV SCH (09:14)
[2022-10-03] MEDS: predniSONE 50 MG TAB PO SCH (09:15)
[2022-10-03] MEDS: BENZONATATE 100 MG CAP PO SCH ×3 (09:15→22:04)
[2022-10-03] MEDS: SODIUM CHLORIDE 0.9% 1,000 ML IV SCH ×4 (09:18→22:13)
[2022-10-03] MEDS: NICOTINE 21MG/24HR PATCH TRANSDERM SCH (11:42)
[2022-10-03] MEDS ORDERED: HEPARIN SOD,PORK IN 0.45% NACL 25,000 UNIT in 0.45% NACL 1 250ML.BAG IV SCH (12:00)
[2022-10-03] MEDS ORDERED: ALTEPLASE 6 MG in SODIUM CHLORIDE 0.9% 144 ML IV ONE ×4 (12:00)
[2022-10-03] MEDS ORDERED: IV FLUID CONTINUATION 1,000 ML IV ONE (12:15)
[2022-10-03] MEDS ORDERED: LIDOCAINE 1% INJ 10MG/ML (30 ML VIAL-PF) SQ ONE (12:15)
[2022-10-03] MEDS ORDERED: MIDAZOLAM 2 MG/2 ML VIAL IV ONE ×2 (12:15→13:26)
[2022-10-03] MEDS: fentaNYL (PF) 50 MCG/ML 2 ML AMP IV ONE ×2 (12:25→13:00)
[2022-10-03] MEDS ORDERED: fentaNYL (PF) 50 MCG/ML 2 ML AMP ONE (12:27)
[2022-10-03] MEDS: MORPHINE SULFATE 4 MG/ML SYRINGE IV ONE ×2 (12:30→12:55)
[2022-10-03] MEDS ORDERED: MORPHINE SULFATE 4 MG/ML SYRINGE ONE (12:31)
[2022-10-03] MEDS ORDERED: IOPAMIDOL-250 100ML BTL IV ONE (14:30)
[2022-10-03 14:32] LABS: Glucose,Whole Blood 147 mg/dL (70-110)
[2022-10-03 15:10] LABS: Basophils # (A) 0.1 k/uL (0-0.2); Basophils % (A) 1 %; Eosinophils # (A) 0.1 k/uL (0-0.7); Eosinophils % (A) 1 %; HCT 50.9 % (39.0-53.0); HGB 16.9 gm/dL (13.0-17.5); Lymphocytes # (A) 0.9 k/uL (1.0-4.8); Lymphocytes % (A) 12 %; MCHC 33.2 g/dL (31.0-37.0); MCV 87.3 fL (80.0-100.0); Mean Platelet Volume 7.8; Monocytes # (A) 0.2 k/uL (0-1.0); Monocytes % (A) 2 %; Neutrophils # (A) 6.3 k/uL (1.3-7.7); Neutrophils % (A) 84 %; Platelet Count 209 k/uL (150-450); RBC 5.83 m/uL (4.30-5.90); RDW 13.4 % (11.5-15.5); WBC 7.5 k/uL (3.8-10.6)
[2022-10-03 15:12] LABS: African American GFR (CKD) >90 (>60 ml/min/1.73 sqM); Anion Gap 4 mmol/L; Blood Urea Nitrogen 13 mg/dL (9-20); Calcium 8.6 mg/dL (8.4-10.2); Carbon Dioxide 25 mmol/L (22-30); Chloride 108 mmol/L (98-107); Glucose 144 mg/dL (74-99); Non-African American GFR(CKD) >90 (>60 ml/min/1.73 sqM); Potassium 4.6 mmol/L (3.5-5.1); Sodium 137 mmol/L (137-145)
[2022-10-03 15:32] LABS: Partial Thromboplastin Time 35.8 sec (22.0-30.0); Prothrombin Time 10.3 sec (9.0-12.0)
--- NOTE | 2022-10-03 15:58 | P.PN ---
Subjective Progress Note Date: 10/03/22 Hospital course: Patient is a very pleasant 41-year-old male with a past medical history of nicotine dependence and recent Covid infection. He presented to the emergency department on 10/02/22 with a chief complaint of shortness of breath.. The patient reported he was diagnosed with Covid-19 approximately one month ago, and although his initial Covid symptoms improved after 2 weeks, his shortness of breath has since persisted. He reports that over the past 2 weeks he has had s ignificantly decreased exercise tolerance with exertional substernal chest discomfort, palpitations, and shortness of breath. He denied any such symptoms in the past. He smokes one pack of cigarettes daily. Denied experiencing cough, fever, lower extremity swelling, or lower extremity pain. He underwent full evaluation in the emergency department. Labs completed and reviewed. CBC and CMP were unremarkable. Coagulation profile revealed elevated d-dimer of 5.44. CTA chest completed revealing bilateral pulmonary emboli within the right and left pulmonary arteries extending to the lobar, segmental, and subsegmental branches with evidence of right heart strain. Patient started on heparin infusion and admitted under our services with consultation to cardiology. Cardiology evaluating planing to take patient to clinical laboratory service teacher for EKOS. Physical exam: Patient seen and fully evaluated at bedside prior to undergoing procedure in clinical laboratory service teacher. Patient reports feeling a persistent dull pain to left anterior chest that worsens upon taking a deep breath. He remains on room air at this time wit h respirations even, regular, and unlabored with SpO2 of 95%. Vitals as follows blood pressure 107/69, heart rate 89, respiratory rate 18, and temp 98.1F. Patient denies having any headache, lightheadedness, dizziness, palpitations, or experiencing any numbness/tingling/weakness/swelling in his extremities. Currently patient remains on IV heparin infusion and plan is for patient to undergo EKOS. Vital signs reviewed and stable. General: Nontoxic, no distress and appears stated age. Derm: Skin warm and dry, normal coloration for ethnicity. Head: Atraumatic, normocephalic and symmetric. Eyes: EOMs intact, no lid lag, and anicteric sclera Mouth: no lip lesions, mucus membranes moist Cardiovascular: regular rate and rhythm with normal S1S2, no murmur, positive posterior tibial pulses bilaterally, and cap refill < 2 seconds. Lungs: Respirations even, regular, and unlabored on room air. Lungs CTA bilaterally, no rhonchi, no rales, no wheezing, and no accessory muscle usage. Abdominal: soft, nontender to palpation, no guarding, no appreciable organomegaly Ext: ROM intact. No gross muscle atrophy, no edema, no contractures Neuro: Speech clear, face symmetrical and CN II-XII grossly intact with no noted focal neuro deficits Psych: Alert and oriented to person, place, time, and situation. Appropriate and pleasant affect. Assessment and Plan of Care: Acute bilateral pulmonary emboli with right heart strain -Suspect secondary to recent Covid 19 infection -Repeat Covid PCR is positive -Continue with IV heparin infusion -Echocardiogram to be completed -Cardiology consulted, taking patient to clinical laboratory service teacher for EKOS. -Patient to remain on continuous telemetry monitoring with close monitoring of vital signs. Nicotine dependence -Recommend smoking cessation. Nicotine patch. CODE STATUS: Full code DVT prophylaxis: Heparin Discussed with: Patient and RN Anticipated discharge date: Clinical course to determine Anticipated discharge place: Home A total of 32 minutes was spent on the care of this complex patient more than 50% of the time was spent in counseling and care coordination. Wesly Pruett NP rendered care for this patient independently, reviewed the findings and plan as documented in the note above. I did not physically speak with or examine the patient on this date. Objective - Vital Signs Vital signs: Vital Signs Temp 98.6 F 10/02/22 20:18 Pulse 78 10/03/22 06:00 Resp 18 10/03/22 06:00 BP 130/87 10/02/22 22:03 Pulse Ox 96 10/02/22 22:03 FiO2 Intake & Output 10/02/22 10/03/22 10/03/22 18:59 06:59 18:59 Intake Total 250 Balance 250 Weight 171.912 kg Intake: Intake, IV Titration 250 Amount Heparin Sod,Pork in 0.45% 250 NaCl 25,000 unit In 0.45 % NaCl 1 250ml.bag @ 13. 379 UNITS/KG/HR 23 mls/hr IV .[id number] [facility] Rx#: [id number] - Labs CBC & Chem 7: 10/03/22 14:30 10/03/22 14:30 Labs: Abnormal Lab Results - Last 24 Hours (Table) 10/02/22 10/02/2222 Range/Units 15:40 15:40 15:40 RBC 6.01 H (4.30-5.90) m/uL APTT (22.0-30.0) sec D-Dimer 5.44 H (<0.60) mg/L FEU Glucose 140 H (74-99) mg/dL Coronavirus (PCR) (Not Detectd) 10/02/22 10/02/22 10/03/22 Range/Units 15:40 20:07 02:08 RBC 6.09 H (4.30-5.90) m/uL APTT 55.9 H (22.0-30.0) sec D-Dimer (<0.60) mg/L FEU Glucose (74-99) mg/dL Coronavirus (PCR) Detected A (Not Detectd) 10/03/22 Range/Units 07:08 RBC 5.96 H (4.30-5.90) m/uL APTT (22.0-30.0) sec D-Dimer (<0.60) mg/L FEU Glucose (74-99) mg/dL Coronavirus (PCR) (Not Detectd)
--- NOTE | 2022-10-03 18:23 | P.PCN ---
Date of Procedure: 10/03/22 Operative Findings: Placement of ultrasonic catheter in the pulmonary artery Performing physician Abe Sims MD Procedure performed 1. Successful placement of ultrasonic catheter in the right and left pulmonary arteries 2. Ultrasound guiding access of the right common femoral veins 2 Indication: Submassive pulmonary embolism in this 41-year-old gentleman who presented to the hospital with shortness of breath and the chest discomfort and underwent a CT scan and that showed evidence of RV strain with RV to LV ratio of more than 1 Approach Right common femoral vein 2 Complication None Level of sedation Moderate sedation next of 67 minutes Procedure description After obtaining an informed consent the patient was brought to the cardiac manufacturing laborer. The right common femoral vein was cannulated using micropuncture technique under ultrasound guidance, the micropuncture wire passed easily in a place an 8 Upper Sorbian 11 cm sheath in the femoral vein on the right side 2. Subsequently and under fluoroscopy guidance I did advance his one catheter initially to the right and then to the left pulmonary arteries. Subsequently advanced an 018 wire through the Salem catheter and the Salem was pulled out. After that I advanced the infusion catheter over the 018 wire to both right and left pulmonary arteries. After that the ultrasonic catheter was inserted inside the infusion catheter under fluoroscopy guidance. The procedure was completed without any complication Postprocedure management ICU admission Follow-up with the patient
[2022-10-03] MEDS ORDERED: HYDROmorphone 1 MG/ML 1 ML SYRINGE IVP STA (19:02)
[2022-10-03 20:58] LABS: Basophils % (A) 0 %; Eosinophils # (A) 0.1 k/uL (0-0.7); Eosinophils % (A) 1 %; HCT 49.3 % (39.0-53.0); HGB 17.1 gm/dL (13.0-17.5); Lymphocytes % (A) 9 %; MCH 30.7 pg (25.0-35.0); MCHC 34.7 g/dL (31.0-37.0); MCV 88.3 fL (80.0-100.0); Mean Platelet Volume 7.8; Monocytes # (A) 0.5 k/uL (0-1.0); Monocytes % (A) 5 %; Neutrophils # (A) 8.6 k/uL (1.3-7.7); Neutrophils % (A) 84 %; Platelet Count 205 k/uL (150-450); RBC 5.59 m/uL (4.30-5.90); WBC 10.2 k/uL (3.8-10.6)
[2022-10-04 01:54] LABS: Basophils % (A) 0 %; Eosinophils # (A) 0.1 k/uL (0-0.7); Eosinophils % (A) 1 %; HCT 47.5 % (39.0-53.0); HGB 14.6 gm/dL (13.0-17.5); Lymphocytes # (A) 1.5 k/uL (1.0-4.8); Lymphocytes % (A) 13 %; MCH 27.1 pg (25.0-35.0); MCHC 30.6 g/dL (31.0-37.0); MCV 88.4 fL (80.0-100.0); Mean Platelet Volume 7.6; Monocytes # (A) 0.7 k/uL (0-1.0); Monocytes % (A) 6 %; Neutrophils # (A) 9.1 k/uL (1.3-7.7); Neutrophils % (A) 79 %; Platelet Count 174 k/uL (150-450); RBC 5.37 m/uL (4.30-5.90); WBC 11.4 k/uL (3.8-10.6)
[2022-10-04 06:13] LABS: Basophils % (A) 0 %; Eosinophils # (A) 0.1 k/uL (0-0.7); Eosinophils % (A) 1 %; HCT 48.6 % (39.0-53.0); HGB 15.8 gm/dL (13.0-17.5); Hypochromasia Slight; Lymphocytes # (A) 2.2 k/uL (1.0-4.8); Lymphocytes % (A) 18 %; MCH 28.9 pg (25.0-35.0); MCHC 32.5 g/dL (31.0-37.0); MCV 88.7 fL (80.0-100.0); Mean Platelet Volume 7.9; Monocytes # (A) 0.7 k/uL (0-1.0); Monocytes % (A) 6 %; Neutrophils # (A) 8.8 k/uL (1.3-7.7); Neutrophils % (A) 74 %; Platelet Count 178 k/uL (150-450); RBC 5.48 m/uL (4.30-5.90); WBC 11.9 k/uL (3.8-10.6)
[2022-10-04 06:23] LABS: African American GFR (CKD) >90 (>60 ml/min/1.73 sqM); Anion Gap 1 mmol/L; Blood Urea Nitrogen 12 mg/dL (9-20); Calcium 7.9 mg/dL (8.4-10.2); Carbon Dioxide 28 mmol/L (22-30); Chloride 109 mmol/L (98-107); Glucose 170 mg/dL (74-99); Non-African American GFR(CKD) >90 (>60 ml/min/1.73 sqM); Potassium 3.7 mmol/L (3.5-5.1); Sodium 138 mmol/L (137-145)
--- NOTE | 2022-10-04 09:50 | US ---
EXAMINATION TYPE: US venous doppler duplex LE DATE OF EXAM: 10/04/2022 9:35 AM COMPARISON: NONE CLINICAL HISTORY: PE. SIDE PERFORMED: Bilateral TECHNIQUE: The lower extremity deep venous system is examined utilizing real time linear array sonog adela with graded compression, doppler sonography and color-flow sonography. VESSELS IMAGED: Common Femoral Vein (Ltd Right) Deep Femoral Vein (Ltd Right) Greater Saphenous Vein * Femoral Vein (Limited Right) Popliteal Vein Small Saphenous Vein * Proximal Calf Veins (* superficial vessels) Right upper leg from groin to distal thigh are severely limited by wire/tubes attached with large b andage. Patient unable to tolerate compression on upper leg. Right Leg: Positive for DVT in visualized veins (Popliteal to calf veins). Positive for Superficial thrombosis in GSV from thigh to calf. Unable to visualized if thrombus extends to thigh/groin due t o limitations. Left Leg: Negative for DVT IMPRESSION: 1. Deep vein thrombosis of the right popliteal and calf veins with superficial thrombophlebitis of t he greater saphenous vein. 2. No evidence of deep vein thrombus of the left lower extremity.
[2022-10-04] MEDS: PANTOPRAZOLE 40 MG/10 ML VIAL IV SCH (09:51)
[2022-10-04] MEDS: predniSONE 50 MG TAB PO SCH (09:52)
[2022-10-04] MEDS: buPROPion XL 300 MG TAB.ER.24H PO SCH (09:52)
[2022-10-04] MEDS: BENZONATATE 100 MG CAP PO SCH ×3 (09:58→23:56)
[2022-10-04] MEDS: NICOTINE 21MG/24HR PATCH TRANSDERM SCH (09:58)
--- NOTE | 2022-10-04 10:13 | P.CNPUL ---
History of Present Illness Consult date: 10/04/22 Requesting physician: Kimberly Tapia Reason for consult: dyspnea, hypoxemia, pulmonary embolism, abnormal CXR/CT Chief complaint: Shortness of breath. History of present illness: Pulmonary consult dated 10/04/2022. 41-year-old male who does not have a primary care physician, and apparently who was recently sick with coronavirus infection 2 weeks prior, comes into the hospital complaining of shortness of breath for about a week or so prior to admission. The shortness of breath was much worse on exertion, not so much at rest. The patient is not particularly active. He denies any fever or chills. Not coughing up any phlegm. He does smoke cigarettes. He has never had anything like this before. He was evaluated in the emergency room, and found to have pulmonary emboli, bilaterally, with right heart strain, and a ratio of the right ventricle the left ventricle, that was greater than 1. For that reason, the patient was taken to the catheterization laboratory and underwent catheter d irected TPA, and ultrasonic dissolution of the clot. Currently, he is resting comfortably in the ICU. He is on 3 L of oxygen. I did Doppler his lower extremities, and he had a deep venous thromboses in his right lower extremity. He is feeling better. The patient has had a history of bilateral lower extremity cellulitis. He is a current every day smoker. White count 11.9, hemoglobin 15.8, hematocrit 48.6, and platelet count 178,000. Sodium 138, potassium 3.7, chlorides 109, CO2 28, BUN 12, creatinine 0.64. Chest x-ray was normal. CT angiogram showed bilateral pulmonary emboli, with evidence of right heart strain, and a RV/LV ratio of 1.3. Review of Systems REVIEW OF SYSTEMS: CONSTITUTIONAL: [Negative.] NEUROLOGIC: [ Negative.] HEENT: [ Negative.] CARDIAC: Chest pressure. PULMONARY: Shortness of breath. GI: [Negative.] : [Negative.] RHEUMATOLOGIC: [ Negative.] IMMUNOLOGIC: [ Negative.] ENDOCRINE: [Negative. ] DERMATOLOGIC: [Negative.] Past Medical History Past Medical History: Skin Disorder Additional Past Medical History / Comment(s): heart murmur, BLE cellulitis History of Any Multi-Drug Resistant Organisms: None Reported Past Surgical History: Adenoidectomy, Tonsillectomy Additional Past Surgical History / Comment(s): multiple ear surgeries Past Anesthesia/Blood Transfusion Reactions: No Reported Reaction Past Psychological History: No Psychological Hx Reported Smoking Status: Current every day smoker Past Alcohol Use History: None Reported Past Drug Use History: Marijuana - Past Family History Father Family Medical History: COPD Medications and Allergies Home Medications Medication Instructions Recorded Confirmed Type Sildenafil Citrate [Sildenafil] 20 mg PO DAILY PRN 06/30/22 10/02/22 History buPROPion XL [Wellbutrin XL] 300 mg PO DAILY 10/02/22 10/02/22 History traZODone HCL [Desyrel] 50 - 100 mg PO HS PRN 10/02/22 10/02/22 History Allergies Allergy/AdvReac Type Severity Reaction Status Date / Time Penicillins Allergy Anaphylaxis Verified 10/02/22 19:41 vancomycin Allergy Swelling Verified 10/02/22 19:41 Physical Exam Osteopathic Statement: *. No significant issues noted on an osteopathic structural exam other than those noted in the History and Physical/Consult. Vitals: Vital Signs Temp Pulse Resp BP Pulse Ox 10/04/22 10:00 86 15 138/84 95 10/04/22 09:00 88 25 H 122/81 95 10/04/22 08:00 97.8 F 87 17 140/82 95 10/04/22 07:00 80 10 L 152/86 96 10/04/22 06:00 92 20 130/75 95 10/04/22 05:00 90 15 124/71 95 10/04/22 04:00 98.3 F 95 13 113/68 94 L 10/04/22 03:00 100 18 144/90 91 L 10/04/22 02:00 105 H 13 135/69 91 L 10/04/22 01:00 101 H 21 126/74 92 L 10/04/22 00:00 98.0 F 101 H 19 131/78 92 L 10/03/22 23:00 103 H 14 111/86 94 L 10/03/22 22:00 96 18 97/66 91 L 10/03/22 21:00 108 H 13 128/77 94 L 10/03/22 20:00 98.1 F 107 H 17 115/73 92 L 10/03/22 19:00 112 H 20 134/69 90 L 10/03/22 18:00 108 H 13 110/58 90 L 10/03/22 17:30 110 H 16 90 L 10/03/22 17:00 108 H 20 125/71 90 L 10/03/22 16:30 107 H 12 125/71 88 L 10/03/22 16:00 104 H 9 L 130/85 87 L 10/03/22 15:30 101 H 13 130/85 91 L 10/03/22 15:00 102 H 13 120/82 87 L 10/03/22 14:42 97.8 F 97 17 93 L 10/03/22 11:30 89 18 107/69 95 Intake and Output 10/03/22 10/04/22 10/04/22 22:59 06:59 14:59 Intake Total 1100 600 725 Output Total 675 275 300 Balance 425 325 425 Intake: IV 600 600 225 Sodium Chloride 0.9% 1, 600 600 225 000 ml @ 75 mls/hr IV . [id number] [facility] Rx#:[id number] Oral 500 500 Output: Urine 675 275 300 Other: Voiding Method Urinal Urinal Urinal # Voids 0 0 0 Weight 175.4 kg No acute distress, oriented 3. No conversational dyspnea or use of accessory muscles. Currently on 3 L. HEENT examination is grossly unremarkable. Neck supple. Full range of motion. No adenopathy thyromegaly or neck vein distention. Cardiovascular examination reveals regular rhythm rate. S1-S2 normal. No S3 or S4. No discernible murmur noted. Heart rate is 86 bpm. Lungs reveal clear breath sounds. Breath sounds are equal bilaterally. No adventitious lung sounds including wheezes rhonchi or crackles. Abdomen obese, without mass or tenderness. Extremities mildly edematous. No cyanosis or clubbing. Some chronic venous st asis changes are noted in the lower extremities. Skin is without rash or lesion. Neurologic examination is brief but nonfocal. Results - Laboratory Findings CBC and BMP: 10/04/22 05:43 10/04/22 05:43 PT/INR, D-dimer PT 10.3 sec (9.0-12.0) 10/03/22 14:30 INR 1.0 (<1.2) 10/03/22 14:30 D-Dimer 5.44 mg/L FEU (<0.60) H 10/02/22 15:40 Abnormal lab findings: Abnormal Labs 10/02/22 10/02/22 10/02/22 15:40 15:40 15:40 WBC RBC 6.01 H MCHC Neutrophils # Lymphocytes # APTT D-Dimer 5.44 H Chloride Creatinine Glucose 140 H POC Glucose (mg/dL) Calcium Coronavirus (PCR) 10/02/22 10/02/22 10/03/22 15:40 20:07 02:08 WBC RBC 6.09 H MCHC Neutrophils # Lymphocytes # APTT 55.9 H D-Dimer Chloride Creatinine Glucose POC Glucose (mg/dL) Calcium Coronavirus (PCR) Detected A 10/03/22 10/03/22 10/03/22 07:08 14:29 14:30 WBC RBC 5.96 H MCHC Neutrophils # Lymphocytes # 0.9 L APTT D-Dimer Chloride Creatinine Glucose POC Glucose (mg/dL) 147 H Calcium Coronavirus (PCR) 10/03/22 10/03/22 10/03/22 14:30 14:30 20:24 WBC RBC MCHC Neutrophils # 8.6 H Lymphocytes # APTT 35.8 H D-Dimer Chloride 108 H Creatinine Glucose 144 H POC Glucose (mg/dL) Calcium Coronavirus (PCR) 10/04/22 10/04/22 10/04/22 01:31 05:43 05:43 WBC 11.4 H 11.9 H RBC MCHC 30.6 L Neutrophils # 9.1 H 8.8 H Lymphocytes # APTT D-Dimer Chloride 109 H Creatinine 0.64 L Glucose 170 H POC Glucose (mg/dL) Calcium 7.9 L Coronavirus (PCR) - Diagnostic Findings Chest x-ray: image reviewed CT scan - chest: image reviewed Assessment and Plan Assessment: Acute bilateral pulmonary embolism, with evidence of right heart strain, and a RV/LV ratio greater than 1. Patient underwent EKOS. Right lower extremity DVT. Morbid obesity. Sedentary lifestyle. Current every day smoker. Chronic lower extremity cellulitis. Plan: Plan dated 10/04/2022. The patient is resting comfortably in the intensive care unit. He is on 3 L. The Doppler of the bilateral lower extremities revealed a right lower extremity DVT. We will continue to follow and make recommendations where appropriate. The patient is feeling much better. He is much less short of breath. Not having any chest pressure anymore. Prognosis is guarded. Time with Patient: Greater than 30
--- NOTE | 2022-10-04 11:38 | P.PN ---
Subjective Progress Note Date: 10/04/22 Principal diagnosis: Submassive pulmonary embolism The patient is a pleasant 41-year-old -Luxembourger gentleman with a past medical history significant for obesity and smoking who presented to the hospital complaining of shortness of breath. He was diagnosed was COVID-19 in fection about a month ago. For the last few days he has been experiencing increasing shortness of breath lately associated with chest discomfort. For that reason emergency department. He underwent sedation including cardiac enzymes came in to be unremarkable and EKG showed sinus tachycardia with evidence of ST changes appeared to be nonspecific and diffuse. Also he underwent a computed tomography scan of the chest and that showed bilateral pulmonary embolism with evidence of right ventricular strain. Currently the patient is hemodynamically stable currently is on heparin IV. No history of PE or DVT in the past. He is in process of having an echocardiogram. He was tested again for COVID-19 10/04/2022 The patient was seen and evaluated this morning. Yesterday he underwent placement of the ultrasonic catheter in the right and left pulmonary arteries. He is feeling better in terms of shortness of breath and he is not hypoxic. No symptoms of chest pain or chest discomfort. He is mechanically stable. I'm going to pull out the ultrasonic catheter. The patient can be transferred to selective floor. Start the patient on oral anticoagulant Objective - Vital Signs Vital signs: Vital Signs Temp 97.8 F 10/04/22 08:00 Pulse 88 10/04/22 11:00 Resp 15 10/04/22 10:00 BP 124/78 10/04/22 11:00 Pulse Ox 95 10/04/22 11:00 FiO2 Intake & Output 10/03/22 10/04/22 10/04/22 18:59 06:59 18:59 Intake Total 1125 900 725 Output Total 500 450 300 Balance 625 450 425 Weight 175.4 kg Intake: IV 375 900 225 Sodium Chloride 0.9% 1, 300 900 225 000 ml @ 75 mls/hr IV . [id number] [facility] Rx#:[id number] Intake, IV Titration 250 Amount Heparin Sod,Pork in 0.45% 250 NaCl 25,000 unit In 0.45 % NaCl 1 250ml.bag @ 13. 379 UNITS/KG/HR 23 mls/hr IV .[id number] [facility] Rx#: [id number] Oral 500 500 Output: Urine 500 450 300 Other: Voiding Method Urinal Urinal # Voids 0 0 - Constitutional General appearance: Present: no acute distress - Respiratory Respiratory: bilateral: CTA - Cardiovascular Rhythm: regular - Labs CBC & Chem 7: 10/04/22 05:43 10/04/22 05:43 Labs: Abnormal Lab Results - Last 24 Hours (Table) 10/03/22 10/03/22 10/03/22 Range/Units 14:29 14:30 14:30 WBC (3.8-10.6) k/uL MCHC (31.0-37.0) g/dL Neutrophils # (1.3-7.7) k/uL Lymphocytes # 0.9 L (1.0-4.8) k/uL APTT 35.8 H (22.0-30.0) sec Chloride (98-107) mmol/L Creatinine (0.66-1.25) mg/dL Glucose (74-99) mg/dL POC Glucose (mg/dL) 147 H (70-110) mg/dL Calcium (8.4-10.2) mg/dL 10/03/22 10/03/22 10/04/22 Range/Units 14:30 20:24 01:31 WBC 11.4 H (3.8-10.6) k/uL MCHC 30.6 L (31.0-37.0) g/dL Neutrophils # 8.6 H 9.1 H (1.3-7.7) k/uL Lymphocytes # (1.0-4.8) k/uL APTT (22.0-30.0) sec Chloride 108 H (98-107) mmol/L Creatinine (0.66-1.25) mg/dL Glucose 144 H (74-99) mg/dL POC Glucose (mg/dL) (70-110) mg/dL Calcium (8.4-10.2) mg/dL 10/04/22 10/04/22 Range/Units 05:43 05:43 WBC 11.9 H (3.8-10.6) k/uL MCHC (31.0-37.0) g/dL Neutrophils # 8.8 H (1.3-7.7) k/uL Lymphocytes # (1.0-4.8) k/uL APTT (22.0-30.0) sec Chloride 109 H (98-107) mmol/L Creatinine 0.64 L (0.66-1.25) mg/dL Glucose 170 H (74-99) mg/dL POC Glucose (mg/dL) (70-110) mg/dL Calcium 7.9 L (8.4-10.2) mg/dL Assessment and Plan Assessment: Assessment Recent diagnosis of COVID-19 infection Submassive pulmonary embolism Obesity History of smoking Plan Put out the ultrasonic catheter Stop all kind of heparin Start the patient on oral anticoagulation Follow-up with the patient
[2022-10-04] MEDS ORDERED: HYDROmorphone 1 MG/ML 1 ML SYRINGE IVP STA (11:50)
--- NOTE | 2022-10-04 11:54 | CA ---
Transthoracic Echo Report Name: Efra Gomez Age: 41 Gender: M : 1980 Exam Date: 10/03/2022 10:46 Exam Location: [facility] Ht (in): Wt (lb): Ordering Physician: Roger Martinez MD Attending/Referring Phys: Char Conveyor Tender Cellar Darcy Greenwood RDCS Procedure CPT: Indications: bilateral pulmonary embolism Technical Quality: Very technically difficult study Contrast 1: Lumason Total Dose (mL): 4 Contrast 2: Total Dose (mL): MEASUREMENTS (Male / Female) Normal Values 2D ECHO RV Diastolic Mid Diameter 5.0 cm 2.7 - 3.3 cm FINDINGS Left Ventricle Left ventricular ejection fraction is estimated at 55 %. Right Ventricle Severe right ventricular dilatation. Right Atrium Left Atrium Mitral Valve Aortic Valve Tricuspid Valve Pulmonic Valve Pericardium Aorta CONCLUSIONS Limited study Technically difficult study Normal left ventricular systolic function Right ventricular dilation Previewed by: Dr. Abe Sims MD (Electronically Signed) Final Date: 04 October 2022 11:53
[2022-10-04] MEDS: SODIUM CHLORIDE 0.9% 1,000 ML IV SCH ×3 (16:45→16:46)
[2022-10-04] MEDS: HEPARIN SOD,PORK IN 0.45% NACL 25,000 UNIT in 0.45% NACL 1 250ML.BAG IV SCH (16:46)
--- NOTE | 2022-10-04 17:05 | P.PN ---
Subjective Progress Note Date: 10/04/22 Patient is 41-year-old male with nicotine dependence, recent Covid infection, and obesity who presented to the emergency department on 10/02/22 with a chief complaint of shortness of breath. In the emergency department he underwent an extensive evaluation. Laboratory analysis was remarkable for a d-dimer 5.44, Covid PCR remained positive. CTA chest reviewed and demonstrated bilateral pulmonary emboli within the right and left pulmonary arteries extending to the lobar, segmental, and subsegmental branches with evidence of right heart strain. Patient started on heparin infusion and admitted with consultation to cardiology. Cardiology evaluated the patient and performed EKOS on 10/03/22. Patient seen and examined at bedside. He is doing well. Having some back pain is feeling restless from laying flat for so long. Breathing is easier but he has not been up and ambulating. Denies any nausea, vomiting, chest pain, lightheadedness or dizziness. We discussed that he likely developed a significant blood clot due to his recent Covid diagnosis, smoking, and obesity. He is aware that he will likely need lifelong anticoagulation after this severe event. General: nontoxic, no distress, appears at stated age, obese Derm: warm, dry Head: atraumatic, normocephalic, symmetric Eyes: EOMI, no lid lag, anicteric sclera Mouth: no lip lesion, mucus membranes moist Cardiovascular: S1S2 reg, no murmur, positive posterior tibial pulse bilateral, Lungs: Decreased breath sounds bases bilateral, no rhonchi, no rales , no accessory muscle use Abdominal: soft, nontender to palpation, no guarding, no appreciable organomegaly Ext: no gross muscle atrophy, 2+ edema bilateral lower extremities, no contractures Neuro: CN II-XI grossly intact, no focal neuro deficits Psych: Alert, oriented, appropriate affect Imaging reviewed 10/04/22: Venous Doppler-DVT in the right popliteal and calf veins with superficial thrombophlebitis in the greater saphenous vein Echocardiogram-ejection fraction 55%, severe right ventricular dilatation CTA chest: bilateral pulmonary emboli within the right and left pulmonary arteries extending to the lobar, segmental, and subsegmental branches with evid ence of right heart strain. Assessment/plan: Massive pulmonary embolism, bilateral with right heart strain Acute hypoxic respiratory failure Recent COVID-19 infection -Status post EKOS -Anticipate starting oral anticoagulation 24 hours after procedure once catheter is removed -Patient will likely need lifelong anticoagulation -Cardiology recommendations -Smoking cessation -Patient likely persistently positive for Covid despite resolution of infection 2 weeks ago. Tobacco abuse -Cessation -Nicotine replacement Obesity class III with BMI 50.4 -Outpatient structured weight loss DVT prophylaxis: On treatment Discussed with: Patient, nursing Anticipated discharge: in 1-[address]: Home A total of 32 minutes was spent on the care of this complex patient more than 50 % of the time was spent in counseling and care coordination. Update: -Patient's EKOS has completed. Patient has been transitioned to our quest. Objective - Vital Signs Vital signs: Vital Signs Temp 98.3 F 10/04/22 04:00 Pulse 80 10/04/22 07:00 Resp 10 L 10/04/22 07:00 BP 152/86 10/04/22 07:00 Pulse Ox 96 10/04/22 07:00 FiO2 Intake & Output 10/03/22 10/04/22 10/04/22 18:59 06:59 18:59 Intake Total 1125 900 75 Output Total 500 450 Balance 625 450 75 Weight 175.4 kg Intake: IV 375 900 75 Sodium Chloride 0.9% 1, 300 900 75 000 ml @ 75 mls/hr IV . [id number] [facility] Rx#:[id number] Intake, IV Titration 250 Amount Heparin Sod,Pork in 0.45% 250 NaCl 25,000 unit In 0.45 % NaCl 1 250ml.bag @ 13. 379 UNITS/KG/HR 23 mls/hr IV .[id number] [facility] Rx#: [id number] Oral 500 Output: Urine 500 450 Other: Voiding Method Urinal # Voids 0 0 - Labs CBC & Chem 7: 10/04/22 05:43 10/04/22 05:43 Labs: Abnormal Lab Results - Last 24 Hours (Table) 10/03/22 10/03/22 10/03/22 Range/Units 14:29 14:30 14:30 WBC (3.8-10.6) k/uL MCHC (31.0-37.0) g/dL Neutrophils # (1.3-7.7) k/uL Lymphocytes # 0.9 L (1.0-4.8) k/uL APTT 35.8 H (22.0-30.0) sec Chloride (98-107) mmol/L Creatinine (0.66-1.25) mg/dL Glucose (74-99) mg/dL POC Glucose (mg/dL) 147 H (70-110) mg/dL Calcium (8.4-10.2) mg/dL 10/03/22 10/03/22 10/04/22 Range/Units 14:30 20:24 01:31 WBC 11.4 H (3.8-10.6) k/uL MCHC 30.6 L (31.0-37.0) g/dL Neutrophils # 8.6 H 9.1 H (1.3-7.7) k/uL Lymphocytes # (1.0-4.8) k/uL APTT (22.0-30.0) sec Chloride 108 H (98-107) mmol/L Creatinine (0.66-1.25) mg/dL Glucose 144 H (74-99) mg/dL POC Glucose (mg/dL) (70-110) mg/dL Calcium (8.4-10.2) mg/dL 10/04/22 10/04/22 Range/Units 05:43 05:43 WBC 11.9 H (3.8-10.6) k/uL MCHC (31.0-37.0) g/dL Neutrophils # 8.8 H (1.3-7.7) k/uL Lymphocytes # (1.0-4.8) k/uL APTT (22.0-30.0) sec Chloride 109 H (98-107) mmol/L Creatinine 0.64 L (0.66-1.25) mg/dL Glucose 170 H (74-99) mg/dL POC Glucose (mg/dL) (70-110) mg/dL Calcium 7.9 L (8.4-10.2) mg/dL
[2022-10-04] MEDS: APIXABAN 5 MG TAB PO SCH (21:12)
[2022-10-05 07:10] LABS: HCT 45.8 % (39.0-53.0); HGB 14.7 gm/dL (13.0-17.5); MCH 28.4 pg (25.0-35.0); MCHC 32.1 g/dL (31.0-37.0); MCV 88.3 fL (80.0-100.0); Mean Platelet Volume 7.6; Platelet Count 156 k/uL (150-450); RBC 5.19 m/uL (4.30-5.90); RDW 13.1 % (11.5-15.5); WBC 11.8 k/uL (3.8-10.6)
[2022-10-05 07:26] LABS: African American GFR (CKD) >90 (>60 ml/min/1.73 sqM); Anion Gap 4 mmol/L; Blood Urea Nitrogen 13 mg/dL (9-20); Calcium 8.2 mg/dL (8.4-10.2); Carbon Dioxide 31 mmol/L (22-30); Chloride 104 mmol/L (98-107); Glucose 136 mg/dL (74-99); Non-African American GFR(CKD) >90 (>60 ml/min/1.73 sqM); Sodium 139 mmol/L (137-145)
[2022-10-05] MEDS: NICOTINE 21MG/24HR PATCH TRANSDERM SCH (08:35)
[2022-10-05] MEDS: PANTOPRAZOLE 40 MG/10 ML VIAL IV SCH (08:35)
[2022-10-05] MEDS: APIXABAN 5 MG TAB PO SCH ×2 (08:35→20:45)
[2022-10-05] MEDS: BENZONATATE 100 MG CAP PO SCH ×2 (08:36→15:29)
[2022-10-05] MEDS: buPROPion XL 300 MG TAB.ER.24H PO SCH (08:36)
--- NOTE | 2022-10-05 10:42 | P.PN ---
Subjective Progress Note Date: 10/05/22 Principal diagnosis: Submassive pulmonary embolism The patient is a pleasant 41-year-old -[place] gentleman with a past medical history significant for obesity and smoking who presented to the hospital complaining of shortness of breath. He was diagnosed was COVID-19 in fection about a month ago. For the last few days he has been experiencing increasing shortness of breath lately associated with chest discomfort. For that reason emergency department. He underwent sedation including cardiac enzymes came in to be unremarkable and EKG showed sinus tachycardia with evidence of ST changes appeared to be nonspecific and diffuse. Also he underwent a computed tomography scan of the chest and that showed bilateral pulmonary embolism with evidence of right ventricular strain. Currently the patient is hemodynamically stable currently is on heparin IV. No history of PE or DVT in the past. He is in process of having an echocardiogram. He was tested again for COVID-19 10/04/2022 The patient was seen and evaluated this morning. Yesterday he underwent placement of the ultrasonic catheter in the right and left pulmonary arteries. He is feeling better in terms of shortness of breath and he is not hypoxic. No symptoms of chest pain or chest discomfort. He is mechanically stable. I'm going to pull out the ultrasonic catheter. The patient can be transferred to selective floor. Start the patient on oral anticoagulant October [id number] The patient was seen this morning. He is feeling better in terms of shortness of breath. No symptoms of chest pain or chest discomfort. He still slightly hypoxic and requiring 2 L of oxygen. Hemodynamically he is stable. I'm going to get him off oxygen and continue monitor the oxygen saturation if he remains stable he potentially can be discharged home. Was still waiting for the echocardiogram. He is on oral anticoagulation Objective - Vital Signs Vital signs: Vital Signs Temp 97.7 F 10/05/22 08:00 Pulse 85 10/05/22 08:00 Resp 14 10/05/22 08:00 BP 119/83 10/05/22 08:00 Pulse Ox 94 L 10/05/22 08:00 FiO2 Intake & Output 10/04/22 10/05/22 10/05/22 18:59 06:59 18:59 Intake Total 1225 500 Output Total 700 500 Balance 525 0 Intake: IV 225 Sodium Chloride 0.9% 1, 225 000 ml @ 75 mls/hr IV . [id number] [facility] Rx#:[id number] Oral 1000 500 Output: Urine 700 500 Other: Voiding Method Urinal Urinal Urinal # Voids 0 - Constitutional General appearance: Present: no acute distress - Respiratory Respiratory: bilateral: diminished - Cardiovascular Rhythm: regular - Labs CBC & Chem 7: 10/05/22 06:15 10/05/22 06:15 Labs: Abnormal Lab Results - Last 24 Hours (Table) 10/05/22 10/05/22 Range/Units 06:15 06:15 WBC 11.8 H (3.8-10.6) k/uL Carbon Dioxide 31 H (22-30) mmol/L Glucose 136 H (74-99) mg/dL Calcium 8.2 L (8.4-10.2) mg/dL Assessment and Plan Assessment: Assessment Recent diagnosis of COVID-19 infection Submassive pulmonary embolism Obesity History of smoking Plan Continue the current medical regimen Continue oral anticoagulation Follow-up with the echocardiogram Possible discharge in the next 24 hours
--- NOTE | 2022-10-05 11:55 | P.PN ---
Subjective Progress Note Date: 10/05/22 Principal diagnosis: Shortness of breath. Pulmonary consult dated 10/04/2022. 41-year-old male who does not have a primary care physician, and apparently who was recently sick with coronavirus infection 2 weeks prior, comes into the hospital complaining of shortness of breath for about a week or so prior to admission. The shortness of breath was much worse on exertion, not so much at rest. The patient is not particularly active. He denies any fever or chills. Not coughing up any phlegm. He does smoke cigarettes. He has never had anything like this before. He was evaluated in the emergency room, and found to have pulmonary emboli, bilaterally, with right heart strain, and a ratio of the right ventricle the left ventricle, that was greater than 1. For that reason, the patient was taken to the catheterization laboratory and underwent catheter directed TPA, and ultrasonic dissolution of the clot. Currently, he is resting comfortably in the ICU. He is on 3 L of oxygen. I did Doppler his lower extremities, and he had a deep venous thromboses in his right lower extremity. He is feeling better. The patient has had a history of bilateral lower extremity cellulitis. He is a current every day smoker. White count 11.9, hemoglobin 15.8, hematocrit 48.6, and platelet count 178,000. Sodium 138, potassium 3.7, chlorides 109, CO2 28, BUN 12, creatinine 0.64. Chest x-ray was normal. CT angiogram showed bilateral pulmonary emboli, with evidence of right heart strain, and a RV/LV ratio of 1.3. Progress note dated 10/05/2022. The patient is again seen in room 266. His 2 L saturation is 94%. His room air saturation is 91%. The patient potentially could be discharged home today. The patient is postop day #2, status post ultrasonic dissolution of his pulmonary emboli, and catheter directed TPA. He is resting comfortably in his room. He had an uneventful night. White count 11.8, with a normal hemoglobin, hematocrit, and platelet count. Sodium 139, potassium 4, chlorides 104, CO2 31, anion gap is 4, BUN 13, creatinine 0.76. Objective - Vital Signs Vital signs: Vital Signs Temp 97.7 F 10/05/22 08:00 Pulse 85 10/05/22 08:00 Resp 14 01/02/23 08:00 BP 119/83 10/05/22 08:00 Pulse Ox 90 L 10/05/22 10:45 FiO2 Intake & Output 10/04/22 10/05/22 10/05/22 18:59 06:59 18:59 Intake Total 1225 500 Output Total 700 500 Balance 525 0 Intake: IV 225 Sodium Chloride 0.9% 1, 225 000 ml @ 75 mls/hr IV . [id number] [facility] Rx#:[id number] Oral 1000 500 Output: Urine 700 500 Other: Voiding Method Urinal Urinal Urinal # Voids 0 - Exam No acute distress, oriented 3. No conversational dyspnea or use of accessory muscles. Currently on room air. HEENT examination is grossly unremarkable. Neck supple. Full range of motion. No adenopathy thyromegaly or neck vein distention. Cardiovascular examination reveals regular rhythm rate. S1-S2 normal. No S3 or S4. No discernible murmur noted. Heart rate is 80 bpm. Lungs reveal clear breath sounds. Breath sounds are equal bilaterally. No adventitious lung sounds including wheezes rhonchi or crackles. Abdomen obese, without mass or tenderness. Extremities mildly edematous. No cyanosis or clubbing. Some chronic venous stasis changes are noted in the lower extremities. Skin is without rash or lesion. Neurologic examination is brief but nonfocal. - Labs CBC & Chem 7: 10/05/22 06:15 10/05/22 06:15 Labs: Abnormal Lab Results - Last 24 Hours (Table) 10/05/22 10/05/22 Range/Units 06:15 06:15 WBC 11.8 H (3.8-10.6) k/uL Carbon Dioxide 31 H (22-30) mmol/L Glucose 136 H (74-99) mg/dL Calcium 8.2 L (8.4-10.2) mg/dL Assessment and Plan Assessment: Acute bilateral pulmonary embolism, with evidence of right heart strain, and a RV/LV ratio greater than 1. Patient underwent EKOS. Right lower extremity DVT. Morbid obesity. Sedentary lifestyle. Current every day smoker. Chronic lower extremity cellulitis. Plan: Plan dated 10/04/2022. The patient is resting comfortably in the intensive care unit. He is on 3 L. The Doppler of the bilateral lower extremities revealed a right lower extremity DVT. We will continue to follow and make recommendations where appropriate. The patient is feeling much better. He is much less short of breath. Not having any chest pressure anymore. Prognosis is guarded. Plan dated 10/05/2022. The patient is doing very well. There is a chance she could be discharged home today. On 2 L, his saturation is 94%. On room air, his saturation is 91%. The patient is ready on a factor X a inhibitor. We will continue to follow the patient make recommendations along the way. The Doppler of the lower extremi ties did reveal a DVT, and the right lower extremity. Prognosis is guarded. Time with Patient: Less than 30
--- NOTE | 2022-10-05 14:49 | P.PN ---
Subjective Progress Note Date: 10/05/22 Patient is 41-year-old male with nicotine dependence, recent Covid infection, and obesity who presented to the emergency department on 10/02/22 with a chief complaint of shortness of breath. In the emergency department he underwent an extensive evaluation. Laboratory analysis was remarkable for a d-dimer 5.44, Covid PCR remained positive. CTA chest reviewed and demonstrated bilateral pulmonary emboli within the right and left pulmonary arteries extending to the lobar, segmental, and subsegmental branches with evidence of right heart strain. Patient started on heparin infusion and admitted with consultation to cardiology. Cardiology evaluated the patient and performed EKOS on 10/03/22. Venous Doppler-DVT in the right popliteal and calf veins with superficial thrombophlebitis in the greater saphenous vein Echocardiogram-ejection fraction 55%, severe right ventricular dilatation CTA chest: bilateral pulmonary emboli within the right and left pulmonary arteries extending to the lobar, segmental, and subsegmental branches with evidence of right heart strain. Patient was seen and examined. No acute events overnight. Patient with no complaints today. He denies any chest pain or SOB. Discussed with nursing, patient desaturated to 89% on rest, maintaining 94% on 2L NC. General: nontoxic, no distress, appears at stated age, obese Derm: warm, dry Head: atraumatic, normocephalic, symmetric Eyes: EOMI, no lid lag, anicteric sclera Mouth: no lip lesion, mucus membranes moist Cardiovascular: S1S2 reg, no murmur Lungs: Decreased breath sounds bases bilateral, no rhonchi, no rales , no ac cessory muscle use Abdominal: soft, nontender to palpation, no guarding, no appreciable organomegaly Ext: no gross muscle atrophy, 2+ edema bilateral lower extremities, no contractures Neuro: no focal neuro deficits Psych: Alert, oriented, appropriate affect #Massive pulmonary embolism, bilateral with right heart strain #Acute hypoxic respiratory failure #Recent COVID-19 infection Status post EKOS Started on Eliquis 10 mg PO QD 10/04 Patient will likely need lifelong anticoagulation Cardiology and Pulmonology recommendations appreciated Smoking cessation Patient likely persistently positive for COVID despite resolution of infection 2 weeks ago Home O2 eval prior to discharge #Leukocytosis WBC count of 11.8 with neutrophilia No signs of active infection Likely reactive #Tobacco abuse Cessation Nicotine replacement #Obesity class III with BMI 50.4 Outpatient structured weight loss Home O2 eval prior to discharge. Anticipate DC on 10/06. Objective - Vital Signs Vital signs: Vital Signs Temp 97.7 F 10/05/22 08:00 Pulse 85 10/05/22 08:00 Resp 14 10/05/22 08:00 BP 119/83 10/05/22 08:00 Pulse Ox 94 L 10/05/22 08:00 FiO2 Intake & Output 10/04/22 10/05/22 10/05/22 18:59 06:59 18:59 Intake Total 1225 500 Output Total 700 500 Balance 525 0 Intake: IV 225 Sodium Chloride 0.9% 1, 225 000 ml @ 75 mls/hr IV . [id number] [facility] Rx#:[id number] Oral 1000 500 Output: Urine 700 500 Other: Voiding Method Urinal Urinal # Voids 0 - Labs CBC & Chem 7: 10/05/22 06:15 10/05/22 06:15 Labs: Abnormal Lab Results - Last 24 Hours (Table) 10/05/22 10/05/22 Range/Units 06:15 06:15 WBC 11.8 H (3.8-10.6) k/uL Carbon Dioxide 31 H (22-30) mmol/L Glucose 136 H (74-99) mg/dL Calcium 8.2 L (8.4-10.2) mg/dL
--- NOTE | 2022-10-05 15:39 | CA ---
Transthoracic Echo Report Name: Efra Gomez Age: 41 Gender: M : 1980 Exam Date: 10/05/2022 13:56 Exam Location: [place] [facility] Ht (in): 72 Wt (lb): 386 Ordering Physician: Abe Sims MD ([id number]) Attending/Referring Phys: Protector Plate Attacher Alessandra Llamas, AD[place] Procedure CPT: Indications: patient had PE, assess LV function Cardiac Hx: Technical Quality: Technically difficult study Contrast 1: Lumason Total Dose (mL): 4 Contrast 2: Total Dose (mL): MEASUREMENTS (Male / Female) Normal Values 2D ECHO LV Diastolic Diameter PLAX 5.2 cm 4.2 - 5.9 / 3.9 - 5.3 cm LV Systolic Diameter PLAX 4.0 cm IVS Diastolic Thickness 1.5 cm 0.6 - 1.0 / 0.6 - 0.9 cm LVPW Diastolic Thickness 1.1 cm 0.6 - 1.0 / 0.6 - 0.9 cm LV Relative Wall Thickness 0.5 DOPPLER TR Peak Velocity 416.7 cm/s TR Peak Gradient 69.5 mmHg Right Ventricular Systolic Press 74.5 mmHg FINDINGS Left Ventricle Moderately increased septal wall thickness. Normal left ventricular systolic function with no obvious regional wall motion abnormalities. Left ventricular ejection fraction is estimated at 55 %. Right Ventricle Right ventricular dilatation. Severe pulmonary hypertension. Right ventricular systolic pressure estimated at 75 mm hg. Right heart strain noted, TAPSE is 13.4 mm and S' is 9 cm/sec Right Atrium Right atrium not well visualized. Left Atrium Normal left atrial size. Mitral Valve No mitral stenosis, regurgitation or prolapse. Aortic Valve No aortic valve stenosis or regurgitation. Tricuspid Valve [id number] tricuspid regurgitation. Pulmonic Valve Trace pulmonic regurgitation. Pericardium No pericardial effusion. Aorta Normal size aortic root and proximal ascending aorta. CONCLUSIONS Normal left ventricular systolic function Severe pulmonary hypertension. Dilated right ventricle. Mild to moderate tricuspid regurgitation Previewed by: Dr. Abe Sims MD (Electronically Signed) Final Date: 05 October 2022 15:38
[2022-10-06] MEDS: BENZONATATE 100 MG CAP PO SCH ×2 (02:41→08:46)
[2022-10-06] MEDS: APIXABAN 5 MG TAB PO SCH (08:46)
[2022-10-06] MEDS: buPROPion XL 300 MG TAB.ER.24H PO SCH (08:46)
[2022-10-06] MEDS: NICOTINE 21MG/24HR PATCH TRANSDERM SCH (08:46)
[2022-10-06] MEDS: PANTOPRAZOLE 40 MG/10 ML VIAL IV SCH (08:46)
--- NOTE | 2022-10-06 09:08 | P.PN ---
Subjective Progress Note Date: 10/06/22 The patient is a 41-year-old male who is currently admitted with bilateral pulmonary emboli and DVT. He underwent EKOS procedure, which she tolerated well. Echocardiogram reveals normal LV function with severe pulmonary hypertension and dilated right ventricle. The patient was interviewed and examined. He states he is breathing well, however has not yet ambulated around the unit. No chest pain overnight. GENERAL: Well-appearing, obese male, in no acute distress. NECK: Supple without JVD or thyromegaly. LUNGS: Breath sounds diminished to auscultation bilaterally. Respiration equal and unlabored. No wheezes, rales or rhonchi. HEART: Regular rate and rhythm without murmurs, rubs or gallops. S1 and S2 heard. EXTREMITIES: Normal range of motion, no edema. No clubbing or cyanosis. Peripheral pulses intact and strong. VITALS: Blood pressure 132/89, SpO2 97% on 2 L nasal cannula, respiratory rate 21, pulse 82, temp 97.5F TELEMETRY: Sinus rhythm overnight LABS: WBC 11.8, hemoglobin 14.7, hematocrit 45.8, platelet 156, sodium 139, potassium 4.0, BUN 13, creatinine 0.76 IMPRESSION: Recent COVID-19 infection Submassive pulmonary emboli DVT, right lower extremity Obesity History of smoking PLAN: Continue anticoagulation Patient may be discharged from the cardiac standpoint Follow-up with primary presentation manager in 1-2 weeks I am dictating on behalf of Dr Arnulfo Nowak's history/physical and assessment/plan. Objective - Vital Signs Vital signs: Vital Signs Temp 97.5 F L 10/06/22 08:00 Pulse 82 10/06/22 08:00 Resp 21 10/06/22 08:00 BP 132/89 10/06/22 08:00 Pulse Ox 97 10/06/22 08:00 FiO2 Intake & Output 10/05/22 10/06/22 10/06/22 18:59 06:59 18:59 Output Total 550 Balance -550 Weight 174.5 kg Output: Urine 550 Other: Voiding Method Urinal Urinal # Voids 3 1 # Bowel Movements 1 - Labs CBC & Chem 7: 10/05/22 06:15 10/05/22 06:15
[2022-10-06 12:21] VITALS: BP 139/96; PULSE 90; RESP 26; TEMP 98
--- NOTE | 2022-10-06 12:43 | P.PN ---
Subjective Progress Note Date: 10/06/22 Principal diagnosis: Shortness of breath. Pulmonary consult dated 10/04/2022. 41-year-old male who does not have a primary care physician, and apparently who was recently sick with coronavirus infection 2 weeks prior, comes into the hospital complaining of shortness of breath for about a week or so prior to admission. The shortness of breath was much worse on exertion, not so much at rest. The patient is not particularly active. He denies any fever or chills. Not coughing up any phlegm. He does smoke cigarettes. He has never had anything like this before. He was evaluated in the emergency room, and found to have pulmonary emboli, bilaterally, with right heart strain, and a ratio of the right ventricle the left ventricle, that was greater than 1. For that reason, the patient was taken to the catheterization laboratory and underwent catheter directed TPA, and ultrasonic dissolution of the clot. Currently, he is resting comfortably in the ICU. He is on 3 L of oxygen. I did Doppler his lower extremities, and he had a deep venous thromboses in his right lower extremity. He is feeling better. The patient has had a history of bilateral lower extremity cellulitis. He is a current every day smoker. White count 11.9, hemoglobin 15.8, hematocrit 48.6, and platelet count 178,000. Sodium 138, potassium 3.7, chlorides 109, CO2 28, BUN 12, creatinine 0.64. Chest x-ray was normal. CT angiogram showed bilateral pulmonary emboli, with evidence of right heart strain, and a RV/LV ratio of 1.3. Progress note dated 10/05/2022. The patient is again seen in room 266. His 2 L saturation is 94%. His room air saturation is 91%. The patient potentially could be discharged home today. The patient is postop day #2, status post ultrasonic dissolution of his pulmonary emboli, and catheter directed TPA. He is resting comfortably in his room. He had an uneventful night. White count 11.8, with a normal hemoglobin, hematocrit, and platelet count. Sodium 139, potassium 4, chlorides 104, CO2 31, anion gap is 4, BUN 13, creatinine 0.76. Progress note dated 10/06/2022. The patient is again seen in room 266. Currently, he's on 1 L of oxygen. He's not receiving any IV fluids. There is some consideration, the patient may be discharged home later today. No new labs today as yet. Objective - Vital Signs Vital signs: Vital Signs Temp 98 F 10/06/22 12:00 Pulse 90 10/06/22 12:00 Resp 26 H 10/06/22 12:00 BP 139/96 10/06/22 12:00 Pulse Ox 94 L 10/06/22 12:00 FiO2 Intake & Output 10/05/22 10/06/22 10/06/22 18:59 06:59 18:59 Output Total 550 Balance -550 Weight 174.5 kg Output: Urine 550 Other: Voiding Method Urinal Urinal Urinal # Voids 3 1 # Bowel Movements 1 - Exam No acute distress, oriented 3. No conversational dyspnea or use of accessory muscles. Currently on room air. HEENT examination is grossly unremarkable. Neck supple. Full range of motion. No adenopathy thyromegaly or neck vein distention. Cardiovascular examination reveals regular rhythm rate. S1-S2 normal. No S3 or S4. No discernible murmur noted. Heart rate is 84 bpm. Lungs reveal clear breath sounds. Breath sounds are equal bilaterally. No adventitious lung sounds including wheezes rhonchi or crackles. Saturations are 94% on room air. Abdomen obese, without mass or tenderness. Extremities mildly edematous. No cyanosis or clubbing. Some chronic venous stasis changes are noted in the lower extremities. Skin is without rash or lesion. Neurologic examination is brief but nonfocal. - Labs CBC & Chem 7: 10/05/22 06:15 10/05/22 06:15 Assessment and Plan Assessment: Acute bilateral pulmonary embolism, with evidence of right heart strain, and a RV/LV ratio greater than 1. Patient underwent EKOS. Right lower extremity DVT. Morbid obesity. Sedentary lifestyle. Current every day smoker. Chronic lower extremity cellulitis. Plan: Plan dated 10/04/2022. The patient is resting comfortably in the intensive care unit. He is on 3 L. The Doppler of the bilateral lower extremities revealed a right lower extremity DVT. We will continue to follow and make recommendations where appropriate. The patient is feeling much better. He is much less short of breath. Not having any chest pressure anymore. Prognosis is guarded. Plan dated 10/05/2022. The patient is doing very well. There is a chance she could be discharged home today. On 2 L, his saturation is 94%. On room air, his saturation is 91%. The patient is ready on a factor X a inhibitor. We will continue to follow the miko ent make recommendations along the way. The Doppler of the lower extremities did reveal a DVT, and the right lower extremity. Prognosis is guarded. Plan dated 10/06/2022. The patient is seen in room 266. The patient may be discharged home later today. The patient's currently on 1 L of oxygen. He's not receiving any IV fluids. He's been stable overnight. The patient has had no additional blood work to speak of. Labs, x-rays, and medications are reviewed. Overall prognosis remains guarded. Should he not be discharged, we will continue to follow. The patient was placed on a factor X a inhibitor. Time with Patient: Less than 30
--- NOTE | 2022-10-06 17:13 | P.DS ---
Providers Date of admission: 10/02/22 19:38 Expected date of discharge: 10/06/22 Attending physician: Kimberly Tapia MD Consults: 10/02/22 19:35 Consult Physician Urgent Consulting Provider: Onel Devlin Consult Reason/Comments: Bilateral pulmonary emboli Do you want consulting provider notified?: Already Contacted 10/03/22 13:34 Consult Physician Routine Consulting Provider: Rgoer Kaufman Consult Reason/Comments: Post PE Care Do you want consulting provider notified?: Yes Primary care physician: Stated None Hospital Course: Patient is 41-year-old male with nicotine dependence, recent Covid infection, and obesity who presented to the emergency department on 10/02/22 with a chief complaint of shortness of breath. In the emergency department he underwent an extensive evaluation. Laboratory analysis was remarkable for a d-dimer 5.44, Covid PCR remained positive. CTA chest reviewed and demonstrated bilateral pulmonary emboli within the right and left pulmonary arteries extending to the lobar, segmental, and subsegmental branches with evidence of right heart strain. Patient started on heparin infusion and admitted with consultation to cardiology. Cardiology evaluated the patient and performed EKOS on 10/03/22. Venous Doppler-DVT in the right popliteal and calf veins with superficial thrombophlebitis in the greater saphenous vein Echocardiogram-ejection fraction 55%, severe right ventricular dilatation CTA chest: bilateral pulmonary emboli within the right and left pulmonary arteries extending to the lobar, segmental, and subsegmental branches with evidence of right heart strain. Patient was seen and examined. No acute events overnight. Patient with no complaints today. States that he is generally feeling better. Case discussed with nursing, passed home O2 eval. Pertinent studies include chest x-ray, chest CTA, echocardiogram, venous Doppler Pertinent procedures include ultrasonic catheter placement in the pulmonary artery General: nontoxic, no distress, appears at stated age, obese Derm: warm, dry Head: atraumatic, normocephalic, symmetric Eyes: EOMI, no lid lag, anicteric sclera Mouth: no lip lesion, mucus membranes moist Cardiovascular: S1S2 reg, no murmur Lungs: Decreased breath sounds bases bilateral, no rhonchi, no rales , no accessory muscle use Abdominal: soft, nontender to palpation, no guarding, no appreciable organo megaly Ext: no gross muscle atrophy, 2+ edema bilateral lower extremities, no contractures Neuro: no focal neuro deficits Psych: Alert, oriented, appropriate affect Discharge diagnosis: #Massive pulmonary embolism, bilateral with right heart strain #Acute hypoxic respiratory failure #Recent COVID-19 infection #Leukocytosis #Tobacco abuse #Obesity class III with BMI 50.4 This complex discharge took 35 minutes to complete. Patient Condition at Discharge: Stable Plan - Discharge Summary Discharge Rx Participant: No New Discharge Prescriptions: New Apixaban [Eliquis Starter Pack (for VTE)] 5 - 10 mg PO DIRECTED 30 Days #1 each Continue traZODone HCL [Desyrel] 50 - 100 mg PO HS PRN PRN Reason: Insomnia buPROPion XL [Wellbutrin XL] 300 mg PO DAILY Discontinued Sildenafil Citrate [Sildenafil] 20 mg PO DAILY PRN PRN Reason: E.D Discharge Medication List buPROPion XL [Wellbutrin XL] 300 mg PO DAILY 10/02/22 [History] traZODone HCL [Desyrel] 50 - 100 mg PO HS PRN 10/02/22 [History] Apixaban [Eliquis Starter Pack (for VTE)] 5 - 10 mg PO DIRECTED 30 Days #1 each 10/06/22 [Rx] Follow up Appointment(s)/Referral(s): Abe Sims MD [STAFF PHYSICIAN] - 1 Week (Office will call you with Appointment time and date.) Roger Kaufman DO [Doctor of Osteopathic Medicine] - 10/15/22 1:00 pm None,Stated [Primary Care Provider] - 1-2 days Patient Instructions/Handouts: Pulmonary Embolism (DC) Activity/Diet/Wound Care/Special Instructions: Diet: Regular FU PCP within 1-2 days of DC. FU with Cardiology within 1 week of DC. FU with Pulmonology within 1 week of DC. Take all medications as advised. Discharge Disposition: HOME SELF-CARE
--- NOTE | 2022-10-09 11:55 | CDI ---
Documentation Clarification Form Date: 10/09/22 From: Kelly Cuevas Admit Date: 10/02/2022 7:38:00 PM Patient Name: Efra Gomez Visit Number: [id number] Discharge Date: 10/06/2022 3:10:00 PM ATTENTION: The Clinical Documentation Specialists (CDI) and [facility] Coding Staff appreciate your assistance in clarifying documentation. Please respond to the clarification below the line at the bottom and electronically sign. The CDI & [facility] Coding staff will review the response and follow-up if needed. Please note: Queries are made part of the Legal Health Record. If you have any questions, please contact the author of this message via ITS. Dr. Gracy Paris, There is documentation that the patient had COVID within the last month and currently with positive COVID test in the 10/03 progress note. Additional clarification is requested. History/risk factors: DM, HTN, SMOKING, COPD, CAD Clinical Indicators: The patient is a 41-year-old male with no known PMH who presents to the emergency room with complaints of shortness of breath. The patient reports he was diagnosed with Covid-19 1 month ago, and although his initial Covid symptoms improved after 2 weeks, his shortness of breath has persisted. He reports that over the past 2 weeks he has had significantly decreased exercise tolerance with exertional substernal chest discomfort, palpitations, and shortness of breath. Coronavirus (PCR) Detected this visit. Treatment: IV Heparin followed with EKOS in right and left pulmonary arteries. Please clarify if the COVID pulmonary embolism is active or a late effect? [ ] COVID pulmonary embolism due to active COVID [ x ] COVID pulmonary embolism due to a sequela of COVID [a manifestation of a prior COVID infection] [ ] Other, please specify [ ] unable to determine MTDD
--- NOTE | 2022-10-09 12:05 | CDI ---
Documentation Clarification Form Date: 10/09/22 From: Kelly Cuevas Admit Date: 10/02/2022 7:38:00 PM Patient Name: Efra Gomez Visit Number: [id number] Discharge Date: 10/06/2022 3:10:00 PM ATTENTION: The Clinical Documentation Specialists (CDI) and [facility] Coding Staff appreciate your assistance in clarifying documentation. Please respond to the clarification below the line at the bottom and electronically sign. The CDI & [facility] Coding staff will review the response and follow-up if needed. Please note: Queries are made part of the Legal Health Record. If you have any questions, please contact the author of this message via ITS. Dr. Gracy Paris, Your patient has Acute bilateral PE with right heart strain documented in the H&P. Based on this information and the findings below, is there an additional diagnosis that is clinically appropriate for this patient? Patient history/risk factors: DM, HTN, SMOKING, COPD, CAD Clinical Indicators: Acute bilateral PE with right heart strain. CTA chest: bilateral pulmonary emboli within the right and left pulmonary arteries extending to the lobar, segmental, and subsegmental branches with evidence of right heart strain. Treatment: IV Heparin followed with EKOS in right and left pulmonary arteries. Is there an additional diagnosis that is clinically appropriate for this patient? [ ] Pulmonary embolism with acute cor pulmonale [x ] Pulmonary embolism without acute cor pulmonale [ ] Other, please specify [ ] Unable to determine MTDD
== END 2022-10-06 15:10 | disposition home or self-care (01) | DRG 166 ==
LOC: EC 15:10 → 3SCARD 19:38 → 2SICU 10-03 11:22
PROVIDERS: ADMIT Internal Medicine; ATTEND Internal Medicine
PROC: 3E06317 Introduction of Other Thrombolytic into Central Artery, Percutaneous Approach (ICD-10-PCS; principal; 2022-10-03 11:13)
PROC: 02FQ3Z0 Fragmentation of Right Pulmonary Artery, Percutaneous Approach, Ultrasonic (ICD-10-PCS; principal; 2022-10-03 11:13)
PROC: 02FR3Z0 Fragmentation of Left Pulmonary Artery, Percutaneous Approach, Ultrasonic (ICD-10-PCS; principal; 2022-10-03 11:13)
DX: I26.99 Other pulmonary embolism without acute cor pulmonale (principal); J96.01 Acute respiratory failure with hypoxia; I82.431 Acute embolism and thrombosis of right popliteal vein; Z68.43 Body mass index [BMI] 50.0-59.9, adult; I27.20 Pulmonary hypertension, unspecified; J44.9 Chronic obstructive pulmonary disease, unspecified; E66.01 Morbid (severe) obesity due to excess calories; E11.9 Type 2 diabetes mellitus without complications; U09.9 Post COVID-19 condition, unspecified; Z20.822 Contact with and (suspected) exposure to COVID-19; I10 Essential (primary) hypertension; I25.10 Atherosclerotic heart disease of native coronary artery without angina pectoris; Z28.310 Unvaccinated for COVID-19; F17.210 Nicotine dependence, cigarettes, uncomplicated; Z71.6 Tobacco abuse counseling; Z79.899 Other long term (current) drug therapy; Z88.0 Allergy status to penicillin; Z88.1 Allergy status to other antibiotic agents
CPT/HCPCS: 36415; 37211; 37213; 71046; 71275; 80048; 80053; 83735; 83880; 84484; 85025; 85027; 85379; 85384; 85610; 85730; 87502; 87635; 93005; 93306; 93970; 96365; 96366; 96375; 99291

== ENCOUNTER 2022-10-25 16:19 | Emergency (ER) | payer OTHER ==
[2022-10-25 16:25] VITALS: TEMP 98
[2022-10-25] MEDS ORDERED: IPRATROPIUM-ALBUTEROL 3 ML NEB INHALATION STA (16:31)
--- NOTE | 2022-10-25 16:45 | ED ---
SOB HPI - General Chief Complaint: Shortness of Breath Stated Complaint: sob Time Seen by Provider: 10/25/22 16:23 Source: patient, RN notes reviewed Mode of arrival: ambulatory Limitations: no limitations - History of Present Illness Initial Comments: This is a 41-year-old male who presents to the emergency department for shortness of breath. States that this started yesterday and has since progressed. He has also started to develop associated chest pain and coughing. He was evaluated here on 10/03 and found to have bilateral PEs. He is still [facility]. Prior to being evaluated on 10/02, he was diagnosed with bronchitis followed by [facility], and is not sure how long the PEs had actually been there. Because of this history, he states that he does not want to take any chances, prompting his visit today. Denies any history of asthma or COPD. Denies any fevers, chills, sore throat, palpitations, abdominal pain, nausea, vomiting, diarrhea, back pain, or headaches. MD Complaint: shortness of breath, cough, chest pain Onset/Timin -: days(s) - Related Data Home Medications Medication Instructions Recorded Confirmed buPROPion XL [Wellbutrin XL] 300 mg PO DAILY 10/02/22 10/02/22 traZODone HCL [Desyrel] 50 - 100 mg PO HS PRN 10/02/22 10/02/22 Previous Rx's Medication Instructions Recorded Apixaban [Eliquis Starter Pack 5 - 10 mg PO DIRECTED 30 Days 10/06/22 (for VTE)] #1 each Albuterol Sulfate [Albuterol 1 puff PO Q4-6H PRN #8.5 gm 10/25/22 Sulfate Hfa] Promethazine/Dextromethorphan 5 ml PO Q4-6H PRN #473 ml 10/25/22 [Promethazine-Dm Syrup] predniSONE 50 mg PO DAILY 5 Days #5 tablet 10/25/22 Allergies Allergy/AdvReac Type Severity Reaction Status Date / Time Penicillins Allergy Anaphylaxis Verified 10/25/22 16:25 vancomycin Allergy Swelling Verified 10/25/22 16:25 Review of Systems ROS Statement: Those systems with pertinent positive or pertinent negative responses have been documented in the HPI. ROS Other: All systems not noted in ROS Statement are negative. Past Medical History Past Medical History: Skin Disorder Additional Past Medical History / Comment(s): heart murmur, BLE cellulitis, Recent PE. History of Any Multi-Drug Resistant Organisms: None Reported Past Surgical History: Adenoidectomy, Tonsillectomy Additional Past Surgical History / Comment(s): multiple ear surgeries Past Anesthesia/Blood Transfusion Reactions: No Reported Reaction Past Psychological History: No Psychological Hx Reported Smoking Status: Current every day smoker Past Alcohol Use History: None Reported Past Drug Use History: Marijuana - Past Family History Father Family Medical History: COPD General Exam Limitations: no limitations General appearance: alert, in no apparent distress Head exam: Present: atraumatic, normocephalic, normal inspection Respiratory exam: Present: normal lung sounds bilaterally. Absent: respiratory distress, wheezes, rales, rhonchi, stridor Cardiovascular Exam: Present: regular rate, normal rhythm, normal heart sounds. Absent: systolic murmur, diastolic murmur, rubs, gallop, clicks Neurological exam: Present: alert, oriented X3, CN II-XII intact Psychiatric exam: Present: normal affect, normal mood Skin exam: Present: warm, dry, intact, normal color. Absent: rash Course Vital Signs 10/25/22 10/25/22 10/25/22 16:20 17:20 18:02 Temperature 98.0 F Pulse Rate 99 90 Respiratory 20 20 18 Rate Blood Pressure 149/89 O2 Sat by Pulse 98 Oximetry 10/25/22 19:35 Temperature Pulse Rate 89 Respiratory 16 Rate Blood Pressure 125/72 O2 Sat by Pulse 96 Oximetry Medical Decision Making - Medical Decision Making This is a 41-year-old male who presents to the emergency department for shortness of breath. Was pt. sent in by a medical professional or institution? @ -No Did you speak to anyone other than the patient for history? @ -No Did you review nursing and triage notes? @ -Yes, and I agree, it is accurate with regards to the patient's symptoms. Were old charts reviewed? @ -Yes, admission records from 10/02 - 10/06 regarding the bilateral PEs. EKG and lab work from 10/02 were also reviewed. Differential Diagnosis? @ -Differential Dyspnea: Coronary syndrome, arrhythmia, tamponade, asthma, COPD, pulmonary embolism, pneumonia, pneumothorax, pulmonary effusion, anaphylaxis, diabetic ketoacidosis, flailed chest, pulmonary contusion, diaphragmatic rupture, anemia, neuromuscular, this is not meant to be an all-inclusive list. EKG interpreted by me (3pts min.)? @ -Sinus rhythm. Ventricular rate 96 bpm, [place] interval 156 ms, QRS duration 94 ms, QTC 401 ms. X-rays interpreted by me (1pt min.)? @ --Chest x-ray obtained, my interpretation identifies no localized consolidations or infiltrates. CT interpreted by me (1pt min.)? @ -CT angiogram of the chest obtained, my interpretation identifies bilateral PEs, when compared with prior CTA on 10/02, these do appear to be smaller. What testing was considered but not performed? (CT, X-rays, U/S, labs)? Why? @ -None What meds were considered but not given? Why? @ -None Did you discuss the management of the patient with other professionals? @ -No Did you reconcile home meds? @ -No Was smoking cessation discussed for >3mins.? @ -No Was critical care preformed (if so, how long)? @ -No Were there social determinants of health that impacted care today? How? (Homelessness, low income, unemployed, alcoholism, drug addiction, transportation, low edu. Level, literacy, decrease access to med. care, senior care, rehab)? @ -No Was there de-escalation of care discussed even if they declined? (Discuss DNR or withdrawal of care, Hospice)? @ -No What co-morbidities impacted this encounter? (DM, HTN, Smoking, COPD, CAD, Cancer, CVA, Hep., AIDS, mental health diagnosis, sleep apnea, morbid obesity)? @ -Morbid obesity, hx of PEs. Was patient admitted / discharged? @ -Discharged. Chest x-ray reveals no acute abnormalities. Lab work reveals an elevated d-dimer. CTA of the chest was subsequently obtained. CTA does reveal residual bilateral PEs, which is not unexpected. They are however smaller than they were. Because he is already on Eliquis and these are improvin g, admission is not necessary. He tested negative for Covid, influenza, and RSV. He was given a DuoNeb breathing treatment, which he states was beneficial followed by a dose of Solu-Medrol. Symptoms is consistent with a bronchitis at this point. Prescription for 5 day course of prednisone, promethazine DM cough syrup, and albuterol inhaler provided with dosing instructions reviewed. Advised that the promethazine DM cough syrup may make him drowsy and he should take this at night until he knows how it affects him. Undiagnosed new problem with uncertain prognosis? @ -None Drug Therapy requiring intensive monitoring for toxicity (Heparin, Nitro, Insulin, Cardizem)? @ -None Were any procedures done? @ -None Diagnosis/symptom? @ -Bronchitis Acute, or Chronic, or Acute on Chronic? @ -Acute Uncomplicated (without systemic symptoms) or Complicated (systemic symptoms)? @ -Uncomplicated Side effects of treatment? @ -None Exacerbation, Progression, or Severe Exacerbation] @ -Not applicable Poses a threat to life or bodily function? @ -No Return precautions reviewed in depth, the patient is instructed to return to the emergency department with any new, worsening, or concerning symptoms. Patient verbalized understanding. This case was discussed in detail with the attending ED physician, Dr. Lynn. Presentation, findings, and treatment plan discussed in detail as well. - Lab Data Result diagrams: 10/25/22 16:53 10/25/22 16:53 Lab Results 10/25/22 10/25/22 10/25/22 Range/Units 16:53 16:53 16:53 WBC 7.1 (3.8-10.6) k/uL RBC 5.69 (4.30-5.90) m/uL Hgb 15.8 (13.0-17.5) gm/dL Hct 48.6 (39.0-53.0) % MCV 85.4 (80.0-100.0) fL MCH 27.7 (25.0-35.0) pg MCHC 32.4 (31.0-37.0) g/dL RDW 13.1 (11.5-15.5) % Plt Count 240 (150-450) k/uL MPV 6.8 Neutrophils % 73 % Lymphocytes % 13 % Monocytes % 9 % Eosinophils % 3 % Basophils % 1 % Neutrophils # 5.2 (1.3-7.7) k/uL Lymphocytes # 0.9 L (1.0-4.8) k/uL Monocytes # 0.6 (0-1.0) k/uL Eosinophils # 0.3 (0-0.7) k/uL Basophils # 0.0 (0-0.2) k/uL PT 10.6 (9.0-12.0) sec INR 1.0 (<1.2) APTT 26.0 (22.0-30.0) sec D-Dimer 1.17 H (<0.60) mg/L FEU Sodium 141 (137-145) mmol/L Potassium 3.6 (3.5-5.1) mmol/L Chloride 109 H (98-107) mmol/L Carbon Dioxide 25 (22-30) mmol/L Anion Gap 7 mmol/L BUN 14 (9-20) mg/dL Creatinine 0.69 (0.66-1.25) mg/dL Est GFR (CKD-EPI)AfAm >90 (>60 ml/min/1.73 sqM) Est GFR (CKD-EPI)NonAf >90 (>60 ml/min/1.73 sqM) Glucose 92 (74-99) mg/dL Plasma Lactic Acid Murtaza (0.7-2.0) mmol/L Calcium 8.6 (8.4-10.2) mg/dL Total Bilirubin 0.5 (0.2-1.3) mg/dL AST 27 (17-59) U/L ALT 42 (4-49) U/L Alkaline Phosphatase 58 (38-126) U/L Troponin I (0.000-0.034) ng/mL Total Protein 6.3 (6.3-8.2) g/dL Albumin 3.8 (3.5-5.0) g/dL Influenza Type A (PCR) (Not Detectd) Influenza Type B (PCR) (Not Detectd) RSV (PCR) (Not Detectd) SARS-CoV-2 (PCR) (Not Detectd) 10/25/22 10/25/22 10/25/22 Range/Units 16:53 16:53 16:53 WBC (3.8-10.6) k/uL RBC (4.30-5.90) m/uL Hgb (13.0-17.5) gm/dL Hct (39.0-53.0) % MCV (80.0-100.0) fL MCH (25.0-35.0) pg MCHC (31.0-37.0) g/dL RDW (11.5-15.5) % Plt Count (150-450) k/uL MPV Neutrophils % % Lymphocytes % % Monocytes % % Eosinophils % % Basophils % % Neutrophils # (1.3-7.7) k/uL Lymphocytes # (1.0-4.8) k/uL Monocytes # (0-1.0) k/uL Eosinophils # (0-0.7) k/uL Basophils # (0-0.2) k/uL PT (9.0-12.0) sec INR (<1.2) APTT (22.0-30.0) sec D-Dimer (<0.60) mg/L FEU Sodium (137-145) mmol/L Potassium (3.5-5.1) mmol/L Chloride (98-107) mmol/L Carbon Dioxide (22-30) mmol/L Anion Gap mmol/L BUN (9-20) mg/dL Creatinine (0.66-1.25) mg/dL Est GFR (CKD-EPI)AfAm (>60 ml/min/1.73 sqM) Est GFR (CKD-EPI)NonAf (>60 ml/min/1.73 sqM) Glucose (74-99) mg/dL Plasma Lactic Acid Murtaza 1.6 (0.7-2.0) mmol/L Calcium (8.4-10.2) mg/dL Total Bilirubin (0.2-1.3) mg/dL AST (17-59) U/L ALT (4-49) U/L Alkaline Phosphatase (38-126) U/L Troponin I <0.012 (0.000-0.034) ng/mL Total Protein (6.3-8.2) g/dL Albumin (3.5-5.0) g/dL Influenza Type A (PCR) Not Detected (Not Detectd) Influenza Type B (PCR) Not Detected (Not Detectd) RSV (PCR) Not Detected (Not Detectd) SARS-CoV-2 (PCR) Not Detected (Not Detectd) - Radiology Data Radiology results: report reviewed, image reviewed Disposition Clinical Impression: Bronchitis, Bilateral pulmonary embolism Disposition: HOME SELF-CARE Instructions (If sedation given, give patient instructions): Acute Bronchitis (ED) Additional Instructions: Return to the emergency department with any new, worsening, or concerning symptoms. Take the prednisone daily for 5 days. You can use the albuterol inhaler every 4-6 hours as needed for shortness of breath. The cough medicine can be used every 4-6 hours as well, however be aware that this may make you drowsy and you should take it at night until you know how it affects you. Continue taking the Eliquis as prescribed, if the shortness of breath or chest pain to worsen, make sure that you return immediately to ensure that the PEs are not worsening. Follow up with your primary care provider in 1-2 days. Prescriptions: Albuterol Sulfate [Albuterol Sulfate Hfa] 1 puff PO Q4-6H PRN #8.5 gm PRN Reason: Shortness Of Breath predniSONE 50 mg PO DAILY 5 Days #5 tablet Promethazine/Dextromethorphan [Promethazine-Dm Syrup] 5 ml PO Q4-6H PRN #473 ml PRN Reason: Cough Is patient prescribed a controlled substance at d/c from ED?: No Referrals: None,Stated [Primary Care Provider] - 1-2 days
--- NOTE | 2022-10-25 17:03 | XR ---
EXAMINATION TYPE: XR chest 2V DATE OF EXAM: 10/25/2022 COMPARISON: 10/02/2022 INDICATION: Difficulty in breathing TECHNIQUE: Frontal and lateral views of the chest are obtained. FINDINGS: The heart size is normal. The pulmonary vasculature is normal. The lungs are clear. IMPRESSION: 1. No acute pulmonary process.
[2022-10-25 17:33] LABS: Basophils % (A) 1 %; Eosinophils # (A) 0.3 k/uL (0-0.7); Eosinophils % (A) 3 %; HCT 48.6 % (39.0-53.0); HGB 15.8 gm/dL (13.0-17.5); Lymphocytes # (A) 0.9 k/uL (1.0-4.8); Lymphocytes % (A) 13 %; MCH 27.7 pg (25.0-35.0); MCHC 32.4 g/dL (31.0-37.0); MCV 85.4 fL (80.0-100.0); Mean Platelet Volume 6.8; Monocytes # (A) 0.6 k/uL (0-1.0); Monocytes % (A) 9 %; Neutrophils # (A) 5.2 k/uL (1.3-7.7); Neutrophils % (A) 73 %; Platelet Count 240 k/uL (150-450); RBC 5.69 m/uL (4.30-5.90); RDW 13.1 % (11.5-15.5); WBC 7.1 k/uL (3.8-10.6)
[2022-10-25 17:44] LABS: Prothrombin Time 10.6 sec (9.0-12.0)
[2022-10-25 17:48] LABS: ALT 42 U/L (4-49); AST 27 U/L (17-59); African American GFR (CKD) >90 (>60 ml/min/1.73 sqM); Albumin 3.8 g/dL (3.5-5.0); Alkaline Phosphatase 58 U/L (38-126); Anion Gap 7 mmol/L; Blood Urea Nitrogen 14 mg/dL (9-20); Calcium 8.6 mg/dL (8.4-10.2); Carbon Dioxide 25 mmol/L (22-30); Chloride 109 mmol/L (98-107); Glucose 92 mg/dL (74-99); Non-African American GFR(CKD) >90 (>60 ml/min/1.73 sqM); Potassium 3.6 mmol/L (3.5-5.1); Sodium 141 mmol/L (137-145); Total Bilirubin 0.5 mg/dL (0.2-1.3); Total Protein 6.3 g/dL (6.3-8.2)
--- NOTE | 2022-10-25 19:04 | CT ---
EXAMINATION TYPE: CT chest angio for PE DATE OF EXAM: 10/25/2022 COMPARISON: 10/02/2022 HISTORY: SOB, Chest pain, elevated d-dimer. Hx PE several weeks ago. CT DLP: 1016.9 mGycm Automated exposure control for dose reduction was used. CONTRAST: Performed with IV Contrast, patient injected with 100 mL of Isovue 370. Images obtained from the thoracic inlet to the diaphragm with the IV contrast. There are Three-D post processed images. The lungs are clear of infiltrate. There is no pleural effusion. No mediastinal adenopathy. There are no hilar masses. There are filling defects in the lower lobe pulmonary arteries bilaterally. The thoracic spine is intact. No compression fracture. IMPRESSION: Bilateral lower lobe pulmonary emboli are smaller than last exam. No evidence of any new pulmonary em bolism.
[2022-10-25] MEDS ORDERED: methylPREDNISolone SOD SUCCI 125 MG/2 ML VIAL IV STA (19:21)
[2022-10-25 19:36] VITALS: BP 125/72; PULSE 89; RESP 16
== END 2022-10-25 19:42 | disposition home or self-care (01) ==
LOC: EC 16:19
DX: J40 Bronchitis, not specified as acute or chronic (principal); I26.99 Other pulmonary embolism without acute cor pulmonale; F17.200 Nicotine dependence, unspecified, uncomplicated; F12.90 Cannabis use, unspecified, uncomplicated; Z88.0 Allergy status to penicillin; Z88.1 Allergy status to other antibiotic agents; Z20.822 Contact with and (suspected) exposure to COVID-19
CPT/HCPCS: 36415; 94640; 93005; 85379; 80053; 83605; 84484; 85025; 85610; 85730; 87636; 71046; 71275; 99285; 96374; J2930; Q9967

== ENCOUNTER 2023-02-13 15:08 | Emergency (ER) | payer OTHER ==
[2023-02-13 15:34] VITALS: RESP 18; TEMP 98.2
[2023-02-13 15:53] LABS: Basophils % (A) 0 %; Eosinophils # (A) 0.2 k/uL (0-0.7); Eosinophils % (A) 2 %; HCT 49.6 % (39.0-53.0); HGB 16.1 gm/dL (13.0-17.5); Lymphocytes % (A) 20 %; MCH 27.8 pg (25.0-35.0); MCHC 32.5 g/dL (31.0-37.0); MCV 85.5 fL (80.0-100.0); Mean Platelet Volume 7.1; Monocytes # (A) 0.5 k/uL (0-1.0); Monocytes % (A) 5 %; Neutrophils # (A) 6.9 k/uL (1.3-7.7); Neutrophils % (A) 70 %; Platelet Count 282 k/uL (150-450); RDW 13.9 % (11.5-15.5); WBC 9.9 k/uL (3.8-10.6)
[2023-02-13 16:00] LABS: ALT 35 U/L (4-49); AST 26 U/L (17-59); African American GFR (CKD) >90 (>60 ml/min/1.73 sqM); Albumin 3.9 g/dL (3.5-5.0); Alkaline Phosphatase 72 U/L (38-126); Anion Gap 7 mmol/L; Blood Urea Nitrogen 20 mg/dL (9-20); Calcium 8.8 mg/dL (8.4-10.2); Carbon Dioxide 31 mmol/L (22-30); Chloride 102 mmol/L (98-107); Glucose 121 mg/dL (74-99); Magnesium 2.2 mg/dL (1.6-2.3); Non-African American GFR(CKD) >90 (>60 ml/min/1.73 sqM); Potassium 3.9 mmol/L (3.5-5.1); Sodium 140 mmol/L (137-145); Total Bilirubin 0.4 mg/dL (0.2-1.3); Total Protein 6.8 g/dL (6.3-8.2)
[2023-02-13 16:02] LABS: INR 0.9 (<1.2); Prothrombin Time 9.8 sec (9.0-12.0)
--- NOTE | 2023-02-13 16:49 | XR ---
EXAMINATION TYPE: XR chest 2V DATE OF EXAM: 02/13/2023 COMPARISON: 10/25/2022 INDICATION: Chest pain TECHNIQUE: Frontal and lateral views of the chest are obtained. FINDINGS: The heart size is normal. The pulmonary vasculature is normal. The lungs are clear. IMPRESSION: 1. No acute pulmonary process.
[2023-02-13 17:02] VITALS: BP 131/77; PULSE 84
--- NOTE | 2023-02-13 17:18 | ED ---
Chest Pain HPI - General Chief Complaint: Chest Pain Stated Complaint: CHEST PAIN-SOB Time Seen by Provider: 02/13/23 16:58 Source: patient Mode of arrival: ambulatory Limitations: no limitations - History of Present Illness Initial Comments: Patient is a 42-year-old male presents to the emergency department for shortness of breath. Patient states he is followed little short of breath with exertion since yesterday. He has a dry cough with some chest tightness only with coughing. Patient has history of bilateral pulmonary embolism in September he is currently on Eliquis. He states with this history he got anxious and wanted to be extra cautious. He denies any leg pain or swelling. No fever, nausea, vomiting. - Related Data Previous Rx's Medication Instructions Recorded Apixaban [Eliquis Starter Pack 5 - 10 mg PO DIRECTED 30 Days 02/06/23 (for VTE)] #1 each Allergies Allergy/AdvReac Type Severity Reaction Status Date / Time Penicillins Allergy Anaphylaxis Verified 02/06/23 18:38 vancomycin Allergy Swelling Verified 02/06/23 18:38 Review of Systems ROS Statement: Those systems with pertinent positive or pertinent negative responses have been documented in the HPI. ROS Other: All systems not noted in ROS Statement are negative. Past Medical History Past Medical History: Skin Disorder Additional Past Medical History / Comment(s): heart murmur, BLE cellulitis, Recent PE. History of Any Multi-Drug Resistant Organisms: None Reported Past Surgical History: Adenoidectomy, Tonsillectomy Additional Past Surgical History / Comment(s): multiple ear surgeries. sx to breat blood clots in lungs 2022 Past Anesthesia/Blood Transfusion Reactions: No Reported Reaction Past Psychological History: No Psychological Hx Reported, Bipolar, Depression, PTSD, Schizophrenia Smoking Status: Current every day smoker Past Alcohol Use History: None Reported Past Drug Use History: Marijuana - Past Family History Father Family Medical History: COPD General Exam Limitations: no limitations General appearance: alert, in no apparent distress Head exam: Present: atraumatic, normocephalic, normal inspection Eye exam: Present: normal appearance, PERRL, EOMI. Absent: scleral icterus, conjunctival injection, periorbital swelling Neck exam: Present: normal inspection. Absent: tenderness, meningismus, lymphadenopathy Respiratory exam: Present: normal lung sounds bilaterally. Absent: respiratory distress, wheezes, rales, rhonchi, stridor Cardiovascular Exam: Present: regular rate, normal rhythm, normal heart sounds. Absent: systolic murmur, diastolic murmur, rubs, gallop, clicks GI/Abdominal exam: Present: soft, normal bowel sounds. Absent: distended, tenderness, guarding, rebound, rigid Extremities exam: Present: normal inspection, full ROM, normal capillary refill, pedal edema (non pitting). Absent: calf tenderness Neurological exam: Present: alert, oriented X3, CN II-XII intact Psychiatric exam: Present: normal affect, normal mood Skin exam: Present: warm, dry, intact, normal color. Absent: rash Course Vital Signs 02/13/23 02/13/23 15:32 17:01 Temperature 98.2 F Pulse Rate 87 84 Respiratory 18 18 Rate Blood Pressure 130/68 131/77 O2 Sat by Pulse 94 L 98 Oximetry Chest Pain [facility] EKG taken at 15:22, interpreted by Sinus rhythm, no ST segment or T-wave abnormality Ventricular rate 87, [place] interval 180, QRS duration 96, QTC 372 Was pt. sent in by a medical professional or institution (, PA, EMERGENCY DEPT TECH, urgent care, hospital, or detention...) When possible be specific @ -No Did you speak to anyone other than the patient for history (EMS, parent, family, police, friend...)? What history was obtained from this source @ -No Did you review nursing and triage notes (agree or disagree)? Why? @ -I reviewed and agree with nursing and triage notes Were old charts reviewed (outside hosp., previous admission, EMS record, old EKG, old radiological studies, urgent care reports/EKG's, detention records)? Report findings @ -Reviewed previous CT of the chest which showed improving PEs. Reviewed previous echocardiogram showing normal ejection fraction Differential Diagnosis (chest pain, altered mental status, abdominal pain women, abdominal pain men, vaginal bleeding, weakness, fever, dyspnea, syncope, headache, dizziness, GI bleed, back pain, seizure, CVA, palpatations, mental health)? @ -Differential Dyspnea: Coronary syndrome, arrhythmia, tamponade, asthma, COPD, pulmonary embolism, pneumonia, pneumothorax, pulmonary effusion, anaphylaxis, diabetic ketoacidosis, flailed chest, pulmonary contusion, diaphragmatic rupture, anemia, neuromuscular, this is not meant to be an all-inclusive list. EKG interpreted by me (3pts min.). @ -As above X-rays interpreted by me (1pt min.). @ -Yes chest x-ray negative for acute process CT interpreted by me (1pt min.). @ -[None done]U/S interreted by me (1pt. min.). @ -[None done]What testng was considered but not performed or refused? (CT, X- rays, U/S, labs)? Why? @ -[None] Whatmedswere considered but not given or refused? Why? @ -[None] Did ou dscuss the management of the patient with other professionals (professionals i.e. , PA, EMERGENCY DEPT TECH, lab, RT, psych nurse, social media director, cut off man, teacher, chief administrative officer, top case assembler)? Give summary @ -[No] Was smkig cessation discussed for >3mins.? @ -[No] Was crtial care preformed (if so, how long)? @ -[No] Were ter social determinants of health that impacted care today? How? (Homelessness, low income, unemployed, alcoholism, drug addiction, transpor tation, low edu. Level, literacy, decrease access to med. care, custodial, rehab)? @ -[No] Was threde-escalation of care discussed even if they declined (Discuss DNR or withdrawal of care, Hospice)? DNR status @ -[No] What c-mrbidities impacted this encounter? (DM, HTN, Smoking, COPD, CAD, Cancer, CVA, ARF, Chemo, Hep., AIDS, mental health diagnosis, sleep apnea, morbid obesity)? @ -[None] Was atiet admitted / discharged? Hospital course, mention meds given and route, prescriptions, significant lab abnormalities, going to OR and other pertinent info. @ -Patient presenting with mild exertional shortness of breath with PE history. Patient is on Eliquis. He is hemodynamically stable no hypoxia. no evidence of respiratory distress. EKG shows sinus rhythm without evidence of acute ischemia. D-dimer and troponin are within normal limits chest x-ray negative for acute process. Patient updated with results I suspect symptoms likely related to underlying upper respiratory infection. Patient to follow-up with primary care provider. We discussed return parameters. Undiagnosed new problem with uncertain prognosis? @ -No Drug Therapy requiring intensive monitoring for toxicity (Heparin, Nitro, Insul in, Cardizem)? @ -No Were any procedures done? @ -No Diagnosis/symptom? @ -dyspnea, atypical chest pain Acute, or Chronic, or Acute on Chronic? @ -acute Uncomplicated (without systemic symptoms) or Complicated (systemic symptoms)? @ -uncomplicated Side effects of treatment? @ -No Exacerbation, Progression, or Severe Exacerbation? @ -No Poses a threat to life or bodily function? How? (Chest pain, [place], [place], pneumonia, PE, COPD, DKA, ARF, appy, cholecystitis, CVA, Diverticulitis, Homicidal, Suicidal, threat to staff... and all critical care pts) @ -No Dr. Ogden is my attending Disposition Clinical Impression: Atypical chest pain, Shortness of breath Disposition: HOME SELF-CARE Condition: Good Instructions (If sedation given, give patient instructions): Chest Pain (ED) Additional Instructions: Please follow-up with your primary care provider in 1-2 days. Return to the emergency department if you experience new, concerning, or worsening symptoms. Is patient prescribed a controlled substance at d/c from ED?: No Referrals: None,Stated [Primary Care Provider] - 1-2 days
== END 2023-02-13 17:44 | disposition home or self-care (01) ==
LOC: EC 15:08
DX: R07.89 Other chest pain (principal); F12.90 Cannabis use, unspecified, uncomplicated; F17.200 Nicotine dependence, unspecified, uncomplicated; Z88.0 Allergy status to penicillin; Z88.8 Allergy status to other drugs, medicaments and biological substances
CPT/HCPCS: 36415; 71046; 80053; 83735; 83880; 84484; 85025; 85379; 85610; 85730; 93005; 99285

== ENCOUNTER 2023-10-27 11:31 | Day surgery (SDC) | payer OTHER ==
--- NOTE | 2023-10-26 10:23 | P.HPOR ---
History of Present Illness H&P Date: 10/26/23 Subjective: This is a 42 year old male that presents today for follow up evaluation regarding a 3 year history of progressively worsening base of the thumb pain. He has pain daily with pinching and grasping objects. He states his mother had similar symptoms and underwent surgery and responded well to the surgery. He denies any injury or prior surgery. He states he also has daily numbness in the left hand involving the thumb, index and middle fingers that wakes him from slee p at night. He has tried steroid injections with only 1 week of relief from his last injection back in March of 2023. He has tried Motrin for his symptoms. Physical Examination: LUE: AIN/PIN/Radial/Ulnar/Median motor intact. Radial/Ulnar/Median SILT. 2+/4 Radial/Ulnar pulses palpated. 5/5 APB, 5/5 FDI. Negative Finkelsteins, positive thumb CMC grind, positive Durkan's compression. Imaging: X-Rays of the left hand 3V reviewed from prior visit demonstrate moderate thumb CMC arthritis. Impression: 1.) Left thumb CMC arthritis 2.) Left carpal tunnel syndrome Plan: Diagnosis and treatment options were discussed with the patient. We discussed continued conservative treatment vs operative treatment for his left thumb CMC arthritis and left carpal tunnel syndrome. He wishes to proceed with surgical intervention after having failed conservative treatment for his symptoms. He is scheduled for a left thumb basilar joint arthroplasty and left endoscopic vs open carpal tunnel release. Risks and benefits of surgery including bleeding, infection, damage to surrounding tissue, need for further surgery, possible need to convert to open procedure, residual numbness were discussed and the patient wished to go forward with surgery. PCP and cardiac clearance is requested due to history of PE and he is currently on Eliquis. The patient was agreeable with this plan. CC:Pham Flannery NP -Eder Loomis DO Orthopedic Hand/Upper Extremity Surgeon Past Medical History Past Medical History: Pulmonary Embolus (PE), Skin Disorder Additional Past Medical History / Comment(s): Bilateral PEs/during covid infection, heart murmur, BLE cellulitis History of Any Multi-Drug Resistant Organisms: None Reported Past Surgical History: Adenoidectomy, Tonsillectomy Additional Past Surgical History / Comment(s): multiple ear surgeries. sx to remove blood clots in lungs 2022 Past Anesthesia/Blood Transfusion Reactions: No Reported Reaction Smoking Status: Current every day smoker - Past Family History Father Family Medical History: COPD Mother Family Medical History: COPD Medications and Allergies Home Medications Medication Instructions Recorded Confirmed Type Apixaban [Eliquis] 5 mg PO BID 10/20/23 10/20/23 History Enoxaparin [Lovenox] 150 mg SQ DIRECTED 10/20/23 10/20/23 History Allergies Allergy/AdvReac Type Severity Reaction Status Date / Time Penicillins Allergy Severe Anaphylaxis Verified 10/20/23 14:21 vancomycin Allergy Severe Swelling Verified 10/20/23 14:21 Physical Examination Osteopathic Statement: *. No significant issues noted on an osteopathic structural exam other than those noted in the History and Physical/Consult.
[~2023-10-27 11:31] MED LIST: DEXAMETHASONE SOD PHOSPHATE 4 MG/ML 1 ML VIAL IV ONE; HYDROmorphone 0.5 MG/0.5 ML SYRINGE IVP PRN; LACTATED RINGERS 1,000 ML IV SCH; ONDANSETRON 4 MG/2 ML VIAL IVP ONE; ceFAZolin 3 GM in SODIUM CHLORIDE 0.9% 100 ML IVPB PRN
[2023-10-27 12:26] VITALS: TEMP 97.8
[2023-10-27] MEDS ORDERED: MIDAZOLAM 2 MG/2 ML VIAL IVP ONE (12:31)
[2023-10-27] MEDS ORDERED: fentaNYL (PF) 50 MCG/ML 2 ML AMP IVP ONE (12:31)
--- NOTE | 2023-10-27 12:54 | P.ANPRN ---
Procedure Note - Anesthesia - Nerve Block Performed Left Supraclavicular Single Time Out Performed: Yes Date of Procedure: 10/27/23 Procedure Start Time: 12:30 Procedure Stop Time: 12:36 Location of Patient: PreOp Indication: Acute Post-Operative Pain, Requested by Surgeon Sedation Type: Sedate with meaningful contact maintained Preparation: Sterile Prep Position: Supine Needle Types: Pajunk Needle Gauge: 21 Ultrasound used to visualize needle placement: Yes Ultrasound used to observe medication spread: Yes Injectate: 0.5% Ropivacaine (see comment for volume) (20 ml + 10 ml NS + 4 mg dexamethasone) Blood Aspirated: No Pain Paresthesia on Injection Noted: No Resistance on Injection: Normal Image Stored and Saved: Yes Events: Uneventful and Well Tolerated
[2023-10-27] MEDS ORDERED: fentaNYL (PF) 50 MCG/ML 2 ML AMP ONE (13:44)
[2023-10-27] MEDS ORDERED: DEXAMETHASONE SOD PHOSPHATE 4 MG/ML 1 ML VIAL ONE (13:44)
[2023-10-27] MEDS ORDERED: SUCCINYLCHOLINE CHLORIDE 200 MG/10 ML VIAL IV ONE (13:44)
[2023-10-27] MEDS ORDERED: ROPIVACAINE 5 MG/ML 30 ML VIAL ONE (13:44)
[2023-10-27] MEDS ORDERED: SODIUM CHLORIDE 0.9% (PF) 10 ML VIAL ONE (13:44)
[2023-10-27] MEDS ORDERED: LIDOCAINE 1% INJ 10MG/ML (20 ML MDV) ONE (13:44)
[2023-10-27] MEDS ORDERED: PROPOFOL 10 MG/ML 20 ML VIAL IV ONE (13:44)
[2023-10-27] MEDS ORDERED: PHENYLEPHRINE-0.9% NACL SYG 1,000 MCG/10 ML SYRINGE ONE (13:44)
[2023-10-27] MEDS ORDERED: LACTATED RINGERS 1,000 ML IV ONE (14:25)
--- NOTE | 2023-10-27 15:10 | P.OP ---
Date of Procedure: 10/27/23 Preoperative Diagnosis: 1.) Left thumb CMC arthritis 2.) Left carpal tunnel syndrome Postoperative Diagnosis: 1.) Left thumb CMC arthritis 2.) Left carpal tunnel syndrome Procedure(s) Performed: 1.) Left thumb CMC basilar joint arthroplasty 2.) Left endoscopic carpal tunnel release Implants: Arthrex 3.5mm Swivel Lock suture anchor x 2 Anesthesia: GETA, regional Surgeon: Eder Loomis Microbiology Lab Technician #1: Jimmie Jimenez Estimated Blood Loss (ml): 0 Pathology: none sent Condition: stable Disposition: PACU Description of Procedure: This is a 42 year old male who presents today for a left thumb CMC basal joint arthroplasty and a left endoscopic carpal tunnel release after having failed conservative treatment for severe thumb CMC arthritis and carpal tunnel syndrome. Risks and benefits of surgery were discussed with the patient inclu ding bleeding, damage to surrounding tissue, infection, need for further surgery as well as risks of anesthesia including pulmonary embolism and even and the patient wished to proceed with surgical intervention. The patients was seen in the pre-operative area by myself. Consent and H&P were completed and updated. The correct extremity was marked in the pre-operative area by myself and all ot her questions were answered. Patient received a upper extremity nerve block by the department of anesthesia. He then was brought to the operating room by the department of anesthesia. They remained on the portable stretcher and a rolling hand table was brought to the side of the operative extremity. The patient was then drifted off to sleep by the department of anesthesia. A nonsterile tourniquet was then applied to the operative extremity and the left upper extremity was then prepped and draped in normal sterile fashion. Pre-operative time out was performed indicating the correct patient, procedure and laterality. All in the room agreed. Pre-operative antibiotics were given prior to skin incision. The operative extremity was the exsanguinated with an esmarch bandage and the tourniquet was inflated to 250mmHg. 15 blade scalpel was utilized to make a transverse incision on the palmar skin just ulnar to the palmaris longus tendon at the level of the distal wrist crease. Ragnell retractor was then placed radially and blunt dissection was performed to reveal the distal forearm fascia. This was lifted with fine Yoni pick ups and Littler tenotomy scissors were then used to open the forearm fascia transversely and a double skin hook was then placed. Hamate finder was placed into the carpal tunnel and then sequential sized dilators were inserted followed by the synovial elevator to separate the flexor tenosynovium from the undersurface of the transverse carpal ligament and a washboard texture was felt. The MicroAire endoscopic carpal tunnel release system gun was the then inserted into the carpal tunnel hugging the deep portion of the transverse carpal ligament in line with the base of the ring finger. Transverse fibers of the ligament were directly visualized. Pressure was applied on the palm to reveal the distal extent of the transverse carpal ligament. The blade was then deployed and the distal half of the transverse carpal ligament was released. The scope was then brought distal again and remaining transverse fibers were incised with the blade. The proximal half of the transverse carpal ligament was then divided and again the scope was advanced distal and remaining transverse fibers were incised with the blade. The radial and ulnar leaflets were directly visualized and mobile consistent with complete release. Tenotomy scissors were then utilized to release the remaining distal forearm fascia under direct visualization taking care to preserve the palmar cutaneous branch of the median nerve. Longitudinal incision was made over the left thumb CMC joint with a 15 blade scalpel. Blunt dissection was taken down to subcutaneous tissues with littler scissors taking care to preserve the branches of the superficial radial nerve. Dorsal radial artery was identified proximally in the incision and protected throughout the procedure. Scalpel was then made to incise the thumb CMC joint creating full thickness flaps off of the proximal metacarpal base and trapezium, this plane was further developed with a periosteal elevator. Elevator was then utilized to identify the thumb CMC joint and scaphotrapezial joint. McGlamory elevator was then used to excise the trapezium whole. Guidewire was then introduced down to the laser line at the base of the first metacarpal through the same incision and was over drilled. Another guidewire was then inserted at the radial base of the first metacarpal near the Insertion of APL and was then over drilled with normal drill guide. A 3.5mm Arthrex SwiveLock anchor was then inserted into the base of the first metacarpal. While holding the thumb in slight traction and full adduction, another 3.5mm Arthrex SwiveLock anchor was inserted into the base of the second metacarpal and the two strands of fibertape were centered across the first metacarpal base to create a sling around the base suspending the thumb metacarpal, good nara purchase was appreciated. The thumb was successfully suspended and full ROM was achieved passively. Suture ends were cut and skin was closed with several interrupted 4-0 Monocryl sutures followed by a running 4-0 Monocryl stitch. Sterile dressing consisting of mastisol and steri strips followed by 4x4s cast padding, and a thumb spica plaster splint was applied. Tourniquet was let down and the hand had brisk cap refill and normal perfusion immediately. The patient was then woken by the department of anesthesia and transferred to PACU in stable condition. Jimmie NOLEN was present for the case and assisted in major portions of procedure and protection of vital neurovascular structures. Eder Loomis D.O. Orthopedic Hand/Upper Extremity Surgeon
[2023-10-27 16:34] VITALS: RESP 16
[2023-10-27] MEDS ORDERED: HYDROcodone/APAP 5-325MG 1 EACH TAB ONE (16:49)
[2023-10-27] MEDS ORDERED: HYDROcodone/APAP 5-325MG 1 EACH TAB PO ONE (16:51)
[2023-10-27 17:20] VITALS: BP 127/81; PULSE 80
== END 2023-10-27 17:26 | disposition home or self-care (01) ==
LOC: OR 11:31
PROVIDERS: ATTEND Orthopaedic Surgery Hand Surgery
DX: G56.02 Carpal tunnel syndrome, left upper limb (principal); M18.12 Unilateral primary osteoarthritis of first carpometacarpal joint, left hand; G89.18 Other acute postprocedural pain; F17.210 Nicotine dependence, cigarettes, uncomplicated; Z86.711 Personal history of pulmonary embolism; Z86.16 Personal history of COVID-19; Z98.890 Other specified postprocedural states; Z79.01 Long term (current) use of anticoagulants; Z79.899 Other long term (current) drug therapy; Z88.0 Allergy status to penicillin; Z88.1 Allergy status to other antibiotic agents
CPT/HCPCS: 64415; 25447; 29848; C1713; J2250; J0330; J1100; J0690; J2001; J3010; J2795; J2704; J2371

== ENCOUNTER 2025-02-06 18:59 | Emergency (ER) | payer OTHER ==
--- NOTE | 2025-02-06 19:46 | ED ---
General Adult HPI - General Chief complaint: Chest Pain Stated complaint: Chest Pain,Sob Time Seen by Provider: 02/06/25 19:00 Source: patient, RN notes reviewed, old records reviewed Mode of arrival: ambulatory Limitations: no limitations - History of Present Illness Initial comments: This is a 44-year-old male with past medical history significant for PE x 2. Patient has been on Eliquis for quite a while but patient was in rehabilitation for methamphetamine use and was in for a week and they did not give him any Eliquis. Patient states he was home yesterday and he started taking his Eliquis again but since yesterday started having an achy pain in his back and some shortness of breath which she states is the same symptoms he had in the past w hen he had his PEs. Patient denies any anterior chest pain or arm pain. Patient denies any fevers or chills but states he has a little bit of a cough. Patient denies doing any methamphetamine for about a week and a half. Patient denies any other problems at this time - Related Data Home Medications Medication Instructions Recorded Confirmed Sildenafil Citrate 100 mg PO Q48H PRN 11/06/24 11/06/24 Previous Rx's Medication Instructions Recorded Apixaban [Eliquis Starter Pack 5 mg PO DIRECTED 30 Days #1 each 11/09/24 (for VTE)] Ascorbic Acid [Vitamin C] 500 mg PO BID tab 11/09/24 Cholecalciferol [Vitamin D3 (10 10 mcg PO DAILY tab 11/09/24 Mcg = 400 Iu)] Zinc Sulfate [Orazinc] 220 mg PO DAILY cap 11/09/24 Allergies Allergy/AdvReac Type Severity Reaction Status Date / Time Penicillins Allergy Severe Anaphylaxis Verified 02/06/25 19:04 vancomycin Allergy Severe Swelling Verified 02/06/25 19:04 Review of Systems ROS Statement: Those systems with pertinent positive or pertinent negative responses have been documented in the HPI. ROS Other: All systems not noted in ROS Statement are negative. Past Medical History Past Medical History: Pulmonary Embolus (PE), Skin Disorder Additional Past Medical History / Comment(s): Bilateral PEs/during covid infection, heart murmur, BLE cellulitis History of Any Multi-Drug Resistant Organisms: None Reported Past Surgical History: Adenoidectomy, Orthopedic Surgery, Tonsillectomy Additional Past Surgical History / Comment(s): multiple ear surgeries. sx to remove blood clots in lungs 2022. thumb Past Anesthesia/Blood Transfusion Reactions: No Reported Reaction Past Psychological History: Anxiety, Depression Smoking Status: Current every day smoker Past Alcohol Use History: None Reported Past Drug Use History: Marijuana - Past Family History Father Family Medical History: COPD Mother Family Medical History: COPD General Exam - General Exam Comments Initial Comments: GENERAL: Patient is well-developed and well-nourished. Patient is nontoxic and well- hydrated and is in mild distress. ENT: Neck is soft and supple. No significant lymphadenopathy is noted. Oropharynx is clear. Moist mucous membranes. Neck has full range of motion without eliciting any pain. EYES: The sclera were anicteric and conjunctiva were pink and moist. Extraocular movements were intact and pupils were equal round and reactive to light. E yelids were unremarkable. PULMONARY: Unlabored respirations. Good breath sounds bilaterally. No audible rales rhonchi or wheezing was noted. CARDIOVASCULAR: There is a regular rate and rhythm without any murmurs gallops or rubs. ABDOMEN: Soft and nontender with normal bowel sounds. SKIN: Skin is clear with no lesions or rashes and otherwise unremarkable. NEUROLOGIC: Patient is alert and oriented x3. Cranial nerves II through XII are grossly intact. Motor and sensory are also intact. Normal speech, volume and content. Symmetrical smile. MUSCULOSKELETAL: Normal extremities with adequate strength and full range of motion. No lower extremity swelling or edema. No calf tenderness. LYMPHATICS: No significant lymphadenopathy is noted PSYCHIATRIC: Normal psychiatric evaluation. Limitations: no limitations Course Vital Signs 02/06/25 02/06/25 19:01 20:27 Temperature 99.2 F Pulse Rate 92 83 Respiratory 18 20 Rate Blood Pressure 143/80 130/76 O2 Sat by Pulse 969 H 94 L Oximetry Medical Decision Making - Medical Decision Making EKG is interpreted by myself and EKG shows a sinus rhythm at 87 bpm AL of the 169 QRS is 100 QT interval is 328 QTc is 373 per patient's EKG shows no ST segment elevation or depression Was pt. sent in by a medical professional or institution (, [facility], [facility]ELINE [facility]ELDER, urgent care, hospital, or jail...) When possible be specific @ -No Did you speak to anyone other than the patient for history (EMS, parent, family, police, friend...)? What history was obtained from this source @ -No Did you review nursing and triage notes (agree or disagree)? Why? @ -I reviewed and agree with nursing and triage notes Were old charts reviewed (outside hosp., previous admission, EMS record, old EKG, old radiological studies, urgent care reports/EKG's, jail records)? Report findings @ -No old charts were reviewed Differential Diagnosis? @ -Differential Chest Pain: Stable Angina, Unstable Angina, STEMI, NSTEMI Aortic Dissection, Pneumothorax, Musculoskeletal, Esophageal Spasm GERD, Cholecystitis, Pancreatitis, Zoster, this is not meant to be an all-inclusive list. EKG interpreted by me (3pts min.). @ -As above X-rays interpreted by me (1pt min.). @ -None done CT interpreted by me (1pt min.). @ -CT of the chest shows no PE U/S interpreted by me (1pt. min.). @ -None done What testing was considered but not performed or refused? (CT, X-rays, U/S, labs)? Why? @ -None What meds were considered but not given or refused? Why? @ -None Did you discuss the management of the patient with other professionals (professionals i.e. , PA, PIPELINE WELDER, lab, RT, psych nurse, social media content specialist, head waiter/waitress, teacher, public safety officer, ed case manager)? Give summary @ -I spoke with the EPS Was smoking cessation discussed for >3mins.? @ -No Was critical care preformed (if so, how long)? @ -No Were there social determinants of health that impacted care today? How? (Homelessness, low income, unemployed, alcoholism, drug addiction, transportation, low edu. Level, literacy, decrease access to med. care, usp, rehab)? @ -No Was there de-escalation of care discussed even if they declined (Discuss DNR or withdrawal of care, Hospice)? DNR status @ -No What co-morbidities impacted this encounter? (DM, HTN, Smoking, COPD, CAD, Cancer, CVA, ARF, Chemo, Hep., AIDS, mental health diagnosis, sleep apnea, morbid obesity)? @ -None Was patient admitted / discharged? Hospital course, mention meds given and route, prescriptions, significant lab abnormalities, going to OR and other pertinent info. @ -I went back in the room to discuss the results with the patient and he wanted to go home he does want to make sure he did not have a PE. Patient never had any anterior chest pain only complaint is some back achiness and some shortness of breath which she states could be secondary to anxiety because he is worried about having a PE patient has Eliquis at home Undiagnosed new problem with uncertain prognosis? @ -No Drug Therapy requiring intensive monitoring for toxicity (Heparin, Nitro, Insulin, Cardizem)? @ -No Were any procedures done? @ -No Diagnosis/symptom? @ -Upper back strain Acute, or Chronic, or Acute on Chronic? @ -Default Uncomplicated (without systemic symptoms) or Complicated (systemic symptoms)? @ -Uncomplicated Side effects of treatment? @ -No Exacerbation, Progression, or Severe Exacerbation? @ -No Poses a threat to life or bodily function? How? (Chest pain, USA, SC, pneumonia, PE, COPD, DKA, ARF, appy, cholecystitis, CVA, Diverticulitis, Homicidal, Suicidal, threat to staff... and all critical care pts) @ -No - Lab Data Result diagrams: 02/06/25 19:42 02/06/25 19:42 Lab Results 02/06/25 02/06/25 02/06/25 Range/Units 19:42 19:42 19:42 WBC 7.14 (4.50-10.00) 10*3/uL RBC 5.76 H (4.40-5.60) 10*6/uL Hgb 16.8 (13.0-17.0) g/dL Hct 48.5 (39.6-50.0) % MCV 84.2 (80.0-97.0) fL MCH 29.2 (27.0-32.0) pg MCHC 34.6 (32.0-37.0) g/dL Plt Count 256 (140-440) 10*3/uL MPV 9.0 L (9.5-12.2) fL Immature Gran % (Auto) 0.6 % Neutrophils % 59.7 % Lymphocytes % 27.3 % Monocytes % 9.9 % Eosinophils % 1.8 % Basophils % 0.7 % Immature Gran # 0.04 (0.00-0.04) 10*3/uL Neutrophils # 4.26 (1.80-7.70) 10*3/uL Lymphocytes # 1.95 (0.90-5.00) 10*3/uL Monocytes # 0.71 (0.20-1.00) 10*3/uL Eosinophils # 0.13 (0.04-0.35) 10*3/uL Basophils # 0.05 (0.00-0.10) 10*3/uL PT 10.7 (10.0-12.5) sec INR 1.0 (<1.2) APTT 24.1 (22.0-30.0) sec Sodium 141 (137-145) mmol/L Potassium 3.7 (3.5-5.1) mmol/L Chloride 103 (98-107) mmol/L Carbon Dioxide 29 (22-30) mmol/L Anion Gap 9 mmol/L BUN 13 (9-20) mg/dL Creatinine 0.71 (0.66-1.25) mg/dL Est GFR (CKD-EPI)AfAm >90 (>60 ml/min/1.73 sqM) Est GFR (CKD-EPI)NonAf >90 (>60 ml/min/1.73 sqM) Glucose 103 H (74-99) mg/dL Calcium 9.6 (8.4-10.2) mg/dL Magnesium 1.7 (1.6-2.3) mg/dL Total Bilirubin 0.3 (0.2-1.3) mg/dL AST 23 (17-59) U/L ALT 25 (4-49) U/L Alkaline Phosphatase 53 (38-126) U/L Troponin I (0.000-0.034) ng/mL Total Protein 6.6 (6.3-8.2) g/dL Albumin 3.9 (3.5-5.0) g/dL 02/06/25 Range/Units 19:42 WBC (4.50-10.00) 10*3/uL RBC (4.40-5.60) 10*6/uL Hgb (13.0-17.0) g/dL Hct (39.6-50.0) % MCV (80.0-97.0) fL MCH (27.0-32.0) pg MCHC (32.0-37.0) g/dL Plt Count (140-440) 10*3/uL MPV (9.5-12.2) fL Immature Gran % (Auto) % Neutrophils % % Lymphocytes % % Monocytes % % Eosinophils % % Basophils % % Immature Gran # (0.00-0.04) 10*3/uL Neutrophils # (1.80-7.70) 10*3/uL Lymphocytes # (0.90-5.00) 10*3/uL Monocytes # (0.20-1.00) 10*3/uL Eosinophils # (0.04-0.35) 10*3/uL Basophils # (0.00-0.10) 10*3/uL PT (10.0-12.5) sec INR (<1.2) APTT (22.0-30.0) sec Sodium (137-145) mmol/L Potassium (3.5-5.1) mmol/L Chloride (98-107) mmol/L Carbon Dioxide (22-30) mmol/L Anion Gap mmol/L BUN (9-20) mg/dL Creatinine (0.66-1.25) mg/dL Est GFR (CKD-EPI)AfAm (>60 ml/min/1.73 sqM) Est GFR (CKD-EPI)NonAf (>60 ml/min/1.73 sqM) Glucose (74-99) mg/dL Calcium (8.4-10.2) mg/dL Magnesium (1.6-2.3) mg/dL Total Bilirubin (0.2-1.3) mg/dL AST (17-59) U/L ALT (4-49) U/L Alkaline Phosphatase (38-126) U/L Troponin I <0.012 (0.000-0.034) ng/mL Total Protein (6.3-8.2) g/dL Albumin (3.5-5.0) g/dL Disposition Clinical Impression: Thoracic back pain Disposition: HOME SELF-CARE Condition: Good Additional Instructions: Patient should take Eliquis as prescribed Is patient prescribed a controlled substance at d/c from ED?: No Referrals: Qing Khalil MD [Primary Care Provider] - 1-2 days Time of Disposition: 21:08
[2025-02-06 20:04] LABS: Partial Thromboplastin Time 24.1 sec (22.0-30.0); Prothrombin Time 10.7 sec (10.0-12.5)
[2025-02-06 20:08] LABS: ALT 25 U/L (4-49); AST 23 U/L (17-59); African American GFR (CKD) >90 (>60 ml/min/1.73 sqM); Albumin 3.9 g/dL (3.5-5.0); Alkaline Phosphatase 53 U/L (38-126); Anion Gap 9 mmol/L; Blood Urea Nitrogen 13 mg/dL (9-20); Calcium 9.6 mg/dL (8.4-10.2); Carbon Dioxide 29 mmol/L (22-30); Chloride 103 mmol/L (98-107); Glucose 103 mg/dL (74-99); Magnesium 1.7 mg/dL (1.6-2.3); Non-African American GFR(CKD) >90 (>60 ml/min/1.73 sqM); Potassium 3.7 mmol/L (3.5-5.1); Sodium 141 mmol/L (137-145); Total Bilirubin 0.3 mg/dL (0.2-1.3); Total Protein 6.6 g/dL (6.3-8.2)
[2025-02-06 20:15] LABS: Basophils # (A) 0.05 10*3/uL (0.00-0.10); Basophils % (A) 0.7 %; Eosinophils # (A) 0.13 10*3/uL (0.04-0.35); Eosinophils % (A) 1.8 %; HCT 48.5 % (39.6-50.0); HGB 16.8 g/dL (13.0-17.0); Lymphocytes # (A) 1.95 10*3/uL (0.90-5.00); Lymphocytes % (A) 27.3 %; MCH 29.2 pg (27.0-32.0); MCHC 34.6 g/dL (32.0-37.0); MCV 84.2 fL (80.0-97.0); Monocytes # (A) 0.71 10*3/uL (0.20-1.00); Monocytes % (A) 9.9 %; Neutrophils # (A) 4.26 10*3/uL (1.80-7.70); Neutrophils % (A) 59.7 %; Platelet Count 256 10*3/uL (140-440); RBC 5.76 10*6/uL (4.40-5.60); RDW 12.9 % (11.5-14.5); WBC 7.14 10*3/uL (4.50-10.00)
--- NOTE | 2025-02-06 21:00 | CT ---
EXAMINATION TYPE: CT chest angio for PE DATE OF EXAM: 02/06/2025 8:20 PM COMPARISON: 10/25/2022 CLINICAL INDICATION: Male, 44 years old with history of Back pain difficulty breathing history of PE, pt arrives with c/o cough, CP and SOB pt has a history of PE pt states that he was in rehab and he d idn't get his [id number], TECHNIQUE: CT of the chest is performed on a spiral scan at 2 mm thick sections. Study is performed with intravenous contrast timed for evaluation for pulmonary embolism. This will limit additional po rtions of the evaluation. 10mm MIP images reconstructed by the technologist are reviewed on the comp uter in the coronal and sagittal planes. Contrast used:100 mL of Isovue 370 with IV Contrast, (none if empty) Oral contrast used: (none if empty) CT DLP: 1192.2 mGycm, Automated exposure control for dose reduction was used. FINDINGS: No persistent filling defects are evident to suggest an acute pulmonary embolism. No mediastinal or hilar adenopathy enlarged by CT criteria is evident. The ascending aorta diameter at the level of the main pulmonary artery is 3.7 cm. The main pulmonary artery diameter at the bifurcation is 2.9 cm. Lung windows are clear. No significant coronary artery calcifications. Limited CT sections were through the upper abdomen. Mild fatty infiltration of the liver. IMPRESSION: 1. No acute pulmonary embolism. 2. No acute pulmonary process. [facility], Workstation: [facility], 02/06/2025 8:58 PM
[2025-02-06 21:28] VITALS: BP 132/66; PULSE 86; RESP 19; TEMP 98.9
== END 2025-02-06 21:31 | disposition home or self-care (01) ==
LOC: EC 18:59
DX: M54.6 Pain in thoracic spine (principal); F17.200 Nicotine dependence, unspecified, uncomplicated; Z88.1 Allergy status to other antibiotic agents; Z88.0 Allergy status to penicillin; Z79.01 Long term (current) use of anticoagulants
CPT/HCPCS: 36415; 93005; 80053; 83735; 84484; 85025; 85610; 85730; 71275; 99285; Q9967